=== PATIENT | female | born 1965 | race Caucasian/White ===

== ENCOUNTER 2018-01-14 15:19 | Inpatient (IN) ==
--- NOTE | 2018-01-14 15:35 | Emergency Department Note ---
Disposition Clinical Impression: Dehydration with hyponatremia, Asymptomatic hypertensive urgency Disposition: Admitted As Inpatient Condition: Good Time of Disposition: 18:00 General Adult HPI - General Chief complaint: ED Dizziness Stated complaint: dehydration Time Seen by Provider: 01/14/18 15:29 Source: patient Mode of arrival: EMS Limitations: no limitations Nursing Notes Reviewed: Yes Vital Signs Reviewed: Yes - History of Present Illness HPI Narrative: 52-year-old past medical history of hypertension, multiple strokes, diabetes presents today for lightheadedness and dehydration. 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 Rest and hydration did not help. Patient was unable to perspire despite feeling overheated. EMS was called due to worsening lightheadedness. Patient denies losing conciousness, trauma, confusion, headaches, nausea, vomiting, abdominal pain, numbness or tingling. She also denies CP, SOB, weakness. Patient states that she feels "very overheated". She is currently receiving 1L bolus, SBP 230s. She reports that she is compliant with her HTN medication and home measurements are <140/90. No further acute complaints. Pt Subjective Complaint: Dizziness Pain Scale: 0 - Related Data Previous Rx's Medication Instructions Recorded cloNIDine HCl [CloNIDine HCl] 0.1 mg PO DAILY #5 tablet 04/27/16 Allergies Allergy/AdvReac Type Severity Reaction Status Date / Time Penicillins [PCN] Allergy Severe Difficulty Verified 11/27/15 09:37 Breathing [place] Allergy Swelling Verified 04/27/16 20:59 of Lip/Tongue/Throat Tomato Allergy Swelling Verified 04/27/16 20:59 of Lip/Tongue/Throat All systems ED: reviewed and negative except as stated. Review of Systems: As Per HPI Constitutional: Reports: as per HPI Cardiovascular: Denies: chest pain Respiratory: Denies: cough, dyspnea Gastrointestinal: Reports: as per HPI. Denies: abdominal pain Genitourinary: Reports: as per HPI Musculoskeletal: Reports: as per HPI Integumentary: Reports: as per HPI Neurological: Reports: weakness. 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 - Social History Smoking Status: Never smoker Smokeless Tobacco Status: No Alcohol use: Reports: none Drug use: Reports: none Physical Exam - General Limitations: no limitations General appearance: alert, in no apparent distress, obese - Head Head exam: atraumatic, normocephalic, normal inspection - Eye Eye exam: Present: normal appearance, PERRL, EOMI - Expanded Eye Exam Pupils: Left: reactive - ENT ENT exam: normal exam, normal oropharynx, mucous membranes moist - Expanded ENT Exam External ear exam: Present: normal external inspection Mouth exam: Present: normal external inspection Teeth exam: Present: normal inspection Throat exam: Present: normal inspection - Neck Neck exam: Present: normal inspection, full ROM, trachea midline - Chest Chest inspection: Present: normal inspection, symmetric chest wall rise - Respiratory Respiratory exam: Present: normal lung sounds bilaterally - Cardiovascular Cardiovascular exam: Present: normal rhythm, tachycardia, normal heart sounds - Abdominal Exam Abdominal exam: Present: soft, Non-Tender. Absent: tenderness, distention, guarding, rebound, rigidity - Extremities Exam Extremities exam: Present: normal inspection, full ROM. Absent: tenderness, pedal edema - Expanded Upper Extremity Exam Shoulder exam: Present: normal inspection, full ROM Arm exam: Present: normal inspection, full ROM Elbow exam: Present: normal inspection, full ROM Forearm/Wrist exam: Present: normal inspection, full ROM Hand exam: Present: normal inspection, full ROM Vascular exam: Normal: capillary refill, radial pulse - Expanded Lower Extremity Exam Hip/Pelvis exam: Present: normal inspection, full ROM Upper leg exam: Present: normal inspection, full ROM Knee exam: Present: normal inspection, full ROM Lower leg exam: Present: normal inspection, full ROM Ankle exam: Present: normal inspection, full ROM Foot/toe exam: Present: normal inspection, full ROM Neurovascular/Tendon exam: Absent: motor deficit, sensory deficit, tendon deficit - Back Exam Back exam: Present: normal inspection, full ROM. Absent: tenderness - Neurological Exam Neurological exam: Present: alert, oriented X3 - Expanded Neurological Exam Patient oriented to: Present: person, place, time Coma Scale Eye Opening: Spontaneous Coma Scale Motor Response: Obeys Commands Coma Scale Verbal Response: Oriented Coma Scale Total: 15 - Psychiatric Psychiatric exam: Present: normal affect, normal mood - Skin Skin exam: Present: warm, dry, intact, normal color Course Course Narrative: Patient's history most consistent with heat stroke. EKG, CXR, CBC, BMP, troponin pending. Continue with 1L IVF, labetalol for her hypertension. - Reevaluation(s) Reevaluation #1: Patient received 2 doses 10 mg labetalol, but pressure continues to be elevated with systolic blood pressure greater than 200. We will administer 1.25 mg Vasotec. Patient continues to be alert and oriented 3. Reports improvement with IV fluids. Chest x-ray unremarkable. EKG without acute changes. We will continue to closely monitor blood pressure. Time: 16:30 Reevaluation #2: Patient's SBP >200 despite 2x 10mg Labetalol and 1.25mg Vasotec. She continues to be AOx3, asymptomatic. Will admit for hypertensive urgency. Time: 17:30 Vital Signs Temperature 98.1 F 01/14/18 15:21 Pulse Rate 98 01/14/18 15:21 Respiratory Rate 20 01/14/18 15:21 Blood Pressure 237/131 01/14/18 15:21 O2 Sat by Pulse Oximetry 98 01/14/18 15:21 Temperature 98.1 F 01/14/18 15:27 Pulse Rate 80 01/14/18 17:30 Respiratory Rate 20 01/14/18 17:46 Blood Pressure 215/99 01/14/18 17:46 O2 Sat by Pulse Oximetry 94 01/14/18 17:30 Oxygen Delivery Oxygen Delivery Room Air Medical Decision Making - [facility] Narrative Medical decision making narrative: Patient presents with symptoms of dehydration. EKG and CXR are unremarkable. CBC and BMP also unremarkable with marginal hyponatremia 133. SBP on presentation >200. After 2 doses 10mg labetalol and 1.25mg Vasotec, SBP remains >200. Patient is to be admitted for hypertensive urgency and better BP control. I spoke with the patient and she is agreeable to management plan. Admitting hospitalist is notified. - Differential Diagnosis hypertensive urgency, hypertensive emergency, unspecified hypertension - Medical Records Medical records reviewed: Yes I reviewed the patient's medical records. - Lab Data Lab results reviewed: Yes I reviewed the patient's lab results. Result diagrams: 01/14/18 15:46 01/14/18 15:46 Lab Results 01/14/18 01/14/18 01/14/18 Range/Units 15:46 15:46 15:46 WBC 9.1 (4.3-11.1) K/mcL RBC 4.45 (3.82-4.97) M/mcL Hgb 11.6 (11.5-15.4) g/dL Hct 36.5 (35.3-44.9) % MCV 82.0 L (83.0-100.0) fL MCH 26.1 L (28.0-33.3) pg MCHC 31.8 (31.6-35.5) g/dL RDW 14.6 H (11.5-14.5) % Plt Count 271 (140-400) K/mcL MPV 10.4 (9.4-12.4) fL Immature Gran % 0.6 (0-4) % Seg Neutrophils % 67.8 % Lymphocytes % 27.9 % Monocytes % 2.9 % Eosinophils % 0.6 % Basophils % 0.2 % Neutrophils # 6.2 (1.6-8.9) K/mcL Lymphocytes # 2.5 (0.6-4.6) K/mcL Monocytes # 0.3 (0.0-1.3) K/mcL Eosinophils # 0.1 (0.0-0.6) K/mcL Basophils # 0.0 (0.0-0.2) K/mcL Sodium 133 L (136-145) mEq/L Potassium 3.5 (3.5-5.1) mEq/L Chloride 98 (98-107) mEq/L Carbon Dioxide 24 (23-29) mEq/L BUN 15 (6-20) mg/dL Creatinine 0.72 (0.60-1.20) mg/dL Est GFR ( Amer) > 60 (> 60) Est GFR (Non-Af Amer) > 60 (> 60) BUN/Creatinine Ratio 21 (6-26) Glucose 188 H (70-105) mg/dL Calculated Osmolality 282 (280-300) Calcium 9.0 (8.6-10.3) mg/dL Troponin I < 0.03 (< 0.04) ng/mL - Radiology Data Radiology results reviewed: Yes I reviewed the patient's radiology results. - EKG Data EKG #1 EKG results narrative: EKG shows a rate of 94. MA interval 156. QRS 92. QTC 427. EKG shows normal: sinus rhythm Rate: tachycardia Rhythm: NSR [place]/QRS: normal
[2018-01-14] MEDS ORDERED: 0.9 % Sodium Chloride 1,000 ML IVC ONE (15:37)
[2018-01-14] MEDS ORDERED: *HR* Labetalol 100 MG/20 ML MDV IVP ONE ×2 (15:43→16:43)
--- NOTE | 2018-01-14 16:22 | Emergency Department Note ---
START Narrative - START START: I examined this patient and my medical decision-making was reviewed with the Resident Physician. I agree with the documented findings, disposition and treatment plan as described except to the extent set forth below. 52-year-old female presents emergency room for getting overheated as well as flushed. 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 States she has been in there since 9 AM. Just got overheated today not severely flushed and lightheaded. He took her blood pressure and it was 200 systolic. They sent her into the ER for evaluation. She denies any chest pain. She denies any vomiting. No headache. No numbness. She denies any vision changes. She states she does feels lightheaded and dizzy at times. She does take blood pressure medications. She did take those this morning. We will check some screening lab work. Chest x-ray. EKG. We will give her some labetalol for her blood pressure to see how she responds. Make sure that she has no end organ damage.
[2018-01-14 16:42] LABS: BUN/Creatinine Ratio 21 (6-26); Blood Urea Nitrogen 15 mg/dL (6-20); Carbon Dioxide 24 mEq/L (23-29); Chloride 98 mEq/L (98-107); Glucose 188 mg/dL (70-105); Osmolality,Calculated 282 (280-300); Potassium 3.5 mEq/L (3.5-5.1); Sodium 133 mEq/L (136-145); eGFR For African Americans > 60 (> 60); eGFR For Non-African Americans > 60 (> 60)
[2018-01-14 16:43] LABS: Basophils % 0.2 %; Eosinophils # 0.1 K/mcL (0.0-0.6); Eosinophils % 0.6 %; Hematocrit 36.5 % (35.3-44.9); Hemoglobin 11.6 g/dL (11.5-15.4); Immature Granulocytes % 0.6 % (0-4); Lymphocytes # 2.5 K/mcL (0.6-4.6); Lymphocytes % 27.9 %; Mean Corpuscular HGB Conc 31.8 g/dL (31.6-35.5); Mean Corpuscular Hemoglobin 26.1 pg (28.0-33.3); Mean Platelet Volume 10.4 fL (9.4-12.4); Monocytes # 0.3 K/mcL (0.0-1.3); Monocytes % 2.9 %; Neutrophils # 6.2 K/mcL (1.6-8.9); Platelet Count 271 K/mcL (140-400); Red Blood Count 4.45 M/mcL (3.82-4.97); Red Cell Distribution Width 14.6 % (11.5-14.5); Segmented Neutrophils % 67.8 %
--- NOTE | 2018-01-14 20:28 | Internal Med History&Physical ---
Date of Encounter: 01/14/18 Time of Encounter: 20:25 Internal Medicine - H&P: HPI Admitted From: Emergency Dept Plans for Post Hospital Care: Home History of present illness: Ms. Alamo is a 52 year old female with PmHx of HTN. 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 She states it got real hot, she was lightheaded, and nauseous. SHe also reports she has not had a lot of fluids to drink. She reports that she is on Lisinopril and Clonidine but does not recall her does. She did report taking her morning medication. CODE STATUS: FULL. In ED WBC 9.1, hgb 11.6, hct 36.5, plt 14.6. NA 133, K 3.3, BUN 15, Cr 0.72. Glucose 188. Troponin <0.03. Chest x ray IMPRESSION: Cardiac silhouette enlargement. No acute airspace disease identified. Past Med Surg Social Fam HX - Past Medical History Medical history: diabetes, GERD, hypertension, renal disease Additional medical history: Anxiety, depressive disorder, cerebral artery occlusion Psychiatric history: anxiety, depression - Past Surgical History Surgical History: , cholecystectomy, other Additional surgical history: gastric bypass - Social History Smoking Status: Never smoker Smokeless Tobacco Status: No Alcohol use: none Drug use: none - Family History Mother Living Status: Age at : 57 Cause of : heart failure Hx Family Cardiac Disorders: Yes Hx Family Respiratory Disorders: No Hx Family Cancer: No Hx Family GI Disorders: No Hx Family Endocrine Disorder: Yes Hx Family Neurologic Disorders: No Hx Family Medical Disorders: Yes Internal Medicine - H&P: Meds cloNIDine HCl [CloNIDine HCl] 0.1 mg PO DAILY #5 tablet 04/27/16 [Rx] 3 Allergy/AdvReac Type Severity Reaction Status Date / Time Penicillins [PCN] Allergy Severe Difficulty Verified 11/27/15 09:37 Breathing [place] Allergy Swelling Verified 04/27/16 20:59 of Lip/Tongue/Throat [place] Allergy Swelling Verified 04/27/16 20:59 of Lip/Tongue/Throat All Systems PM: A 10-system review of systems was performed and is negative for pertinent findings except as documented above in the HPI. - Constitutional Vitals: Temp Pulse Resp BP Pulse Ox 97.9 F 81 17 209/102 95 01/14/18 18:48 06/09/18 18:48 01/14/18 18:48 01/14/18 20:08 01/14/18 18:48 General appearance: Present: A&O X 3, morbidly obese, no acute distress - Head Head exam: Present: atraumatic, normocephalic - Eye Eye exam: Present: PERRL, conjuntiva pink, sclera anicteric Pupils: Present: PERRL - Neck Neck exam general surgery: Present: supple, trachea midline. Absent: lymphadenopathy - Respiratory Respiratory exam: Present: CTAB. Absent: accessory muscle use, rales, rhonchi, wheezes - Cardiovascular Cardiovascular exam: Present: RRR, +S1, +S2. Absent: diastolic murmur, gallop, rubs, systolic murmur - GI/Abdominal GI/Abdominal exam: Present: normal bowel sounds, soft, no peritoneal signs. Absent: distended, tenderness - Extremities Exam Extremities exam: Present: warm, radial pulses palpable and symmetrical. Absent : calf tenderness, cyanotic, pedal edema - Neurological Exam Neurological exam: Present: CN II-XII intact, oriented X3, no focal deficits. Absent: pronater drift, facial droop, speech deficit - Skin Skin exam: Present: dry, intact Internal Med - H&P Results - Labs CBC & Chem 7: 01/14/18 15:46 01/14/18 15:46 - Assessment and plan (1) Hypertensive urgency Current Visit: Yes Status: Acute Assessment and plan: WIll resume home medication. Will work to gradually lower BP. Will monitor on telemetry. (2) Heat exhaustion Current Visit: Yes Status: Acute Assessment and plan: Given IVF in ED. Will encourage PO intake. Qualifiers: Qualified Code(s): T67.5XXA - Heat exhaustion, unspecified, initial encounter (3) Dehydration with hyponatremia Current Visit: Yes Status: Acute Assessment and plan: Will recheck BMP following hydration. Encourage PO intake. - Time Spent With Patient Total time spent is greater than 50% in coordination of care (as documented) at patient's floor/unit and/or counseling patient: 25 - 35 minutes
[2018-01-14] MEDS ORDERED: Naloxone 0.4 MG/ML INJ IVP PRN (20:31)
[2018-01-14] MEDS ORDERED: Acetaminophen 325 MG TABLET PO PRN (20:31)
[2018-01-14] MEDS ORDERED: cloNIDine HCl 0.1 MG TABLET ONE (20:46)
[2018-01-14] MEDS: cloNIDine HCl 0.1 MG TABLET PO SCH (20:50)
[2018-01-14] MEDS: niCARdipine 40 MG/200 ML MLS IVC SCH (23:04)
[2018-01-15] MEDS: *HR* Enoxaparin 40 MG/0.4 ML SYRINGE SQ SCH (05:38)
[2018-01-15 06:22] LABS: BUN/Creatinine Ratio 22 (6-26); Blood Urea Nitrogen 12 mg/dL (6-20); Calcium 9.4 mg/dL (8.6-10.3); Carbon Dioxide 25 mEq/L (23-29); Chloride 102 mEq/L (98-107); Glucose 197 mg/dL (70-105); Osmolality,Calculated 289 (280-300); Sodium 137 mEq/L (136-145); eGFR For African Americans > 60 (> 60); eGFR For Non-African Americans > 60 (> 60)
[2018-01-15] MEDS: cloNIDine HCl 0.1 MG TABLET PO SCH ×3 (07:27→19:53)
[2018-01-15] MEDS: niCARdipine 40 MG/200 ML MLS IVC SCH ×2 (07:28→13:55)
[2018-01-15] MEDS ORDERED: Lisinopril 20 MG TABLET PO SCH ×2 (09:00→21:00)
[2018-01-15] MEDS ORDERED: diazePAM 5 MG TABLET PO PRN (13:07)
--- NOTE | 2018-01-15 13:40 | Internal Med Progress Note ---
Date of Encounter: 01/15/18 Time of Encounter: 13:37 - Assessment and plan (1) Asymptomatic hypertensive urgency Current Visit: Yes Status: Acute Assessment and plan: Currently blood pressure improved restart home medications Labetolol prn Dispo: If patient remains stable tomorrow and right arm doppler negative, anticipate discharge early tomorrow. (2) Dehydration with hyponatremia Current Visit: Yes Status: Acute Assessment and plan: Resolved with IV fluids. No further need for IV fluids (3) Heat exhaustion Current Visit: Yes Status: Acute Qualifiers: Encounter type: initial encounter Qualified Code(s): T67.5XXA - Heat exhaustion, unspecified, initial encounter (4) Hypertensive urgency Current Visit: Yes Status: Acute Assessment and plan: As above, continue prn medications Restart home medications. (5) Swelling of right upper extremity Current Visit: Yes Status: Acute Assessment and plan: Will get doppler rule out DVT - Time Spent With Patient Total time spent is greater than 50% in coordination of care (as documented) at patient's floor/unit and/or counseling patient: - Subjective Interval history: No acute events. Patient states she feels better and doesn't feel overheated anymore. She admits to arm arm swelling after BP cuff measurments have been used. - Constitutional Vitals: Temp Pulse Resp BP Pulse Ox 98.2 F 88 18 160/71 95 01/15/18 11:01 01/15/18 13:00 01/15/18 11:08 01/15/18 13:00 01/15/18 11:08 General appearance: Present: A&O X 3, morbidly obese, no acute distress - Head Head exam: Present: atraumatic, normocephalic - Eye Eye exam: Present: PERRL, conjuntiva pink, sclera anicteric Pupils: Present: PERRL - Neck Neck exam general surgery: Present: supple, trachea midline. Absent: lymphadenopathy - Respiratory Respiratory exam: Present: CTAB. Absent: accessory muscle use, rales, rhonchi, wheezes - Cardiovascular Cardiovascular exam: Present: RRR, +S1, +S2. Absent: diastolic murmur, gallop, rubs, systolic murmur - GI/Abdominal GI/Abdominal exam: Present: normal bowel sounds, soft, no peritoneal signs. Absent: distended, tenderness - Extremities Exam Extremities exam: Present: warm, radial pulses palpable and symmetrical. Absent : calf tenderness, cyanotic, pedal edema Additional comments: Right arm with swelling but palpaple pulse - Neurological Exam Neurological exam: Present: CN II-XII intact, oriented X3, no focal deficits. Absent: pronater drift, facial droop, speech deficit - Skin Skin exam: Present: dry, intact Additional comments: Right arm erythematous and slightly swelling. Internal Medicine: Result - Labs CBC & Chem 7: 01/14/18 15:46 01/15/18 05:46 Labs: [facility] 01/15/18 05:46 Sodium 137 Potassium 4.0 Chloride 102 Carbon Dioxide 25 BUN 12 Creatinine 0.54 L Glucose 197 H Calcium 9.4 Consult Discharge Plan - Plan Referrals: Sammy Vela MD [Primary Care Provider] -
[2018-01-16] MEDS: *HR* Enoxaparin 40 MG/0.4 ML SYRINGE SQ SCH (03:44)
[2018-01-16 05:33] LABS: Basophils % 0.3 %; Eosinophils # 0.2 K/mcL (0.0-0.6); Eosinophils % 2.6 %; Hematocrit 36.7 % (35.3-44.9); Hemoglobin 11.7 g/dL (11.5-15.4); Immature Granulocytes % 0.4 % (0-4); Lymphocytes # 2.2 K/mcL (0.6-4.6); Lymphocytes % 31.2 %; Mean Corpuscular HGB Conc 31.9 g/dL (31.6-35.5); Mean Corpuscular Hemoglobin 26.2 pg (28.0-33.3); Mean Corpuscular Volume 82.3 fL (83.0-100.0); Mean Platelet Volume 10.3 fL (9.4-12.4); Monocytes # 0.3 K/mcL (0.0-1.3); Monocytes % 4.1 %; Neutrophils # 4.3 K/mcL (1.6-8.9); Platelet Count 254 K/mcL (140-400); Red Blood Count 4.46 M/mcL (3.82-4.97); Red Cell Distribution Width 15.1 % (11.5-14.5); Segmented Neutrophils % 61.4 %
[2018-01-16 05:52] LABS: BUN/Creatinine Ratio 29 (6-26); Blood Urea Nitrogen 15 mg/dL (6-20); Calcium 8.9 mg/dL (8.6-10.3); Carbon Dioxide 24 mEq/L (23-29); Chloride 104 mEq/L (98-107); Glucose 188 mg/dL (70-105); Osmolality,Calculated 294 (280-300); Potassium 3.6 mEq/L (3.5-5.1); Sodium 139 mEq/L (136-145); eGFR For African Americans > 60 (> 60); eGFR For Non-African Americans > 60 (> 60)
[2018-01-16] MEDS: ARIPiprazole 10 MG TABLET PO SCH (07:51)
[2018-01-16] MEDS: Venlafaxine XR (24 HR) 75 MG CAP.ER.24H PO SCH (07:51)
[2018-01-16] MEDS: cloNIDine HCl 0.1 MG TABLET PO SCH ×3 (07:51→20:59)
[2018-01-16] MEDS: Cholecalciferol (D-3) 1,000 UNIT TABLET PO SCH (07:52)
--- NOTE | 2018-01-16 08:11 | Electrocardiograph Report ---
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
[2018-01-16] MEDS ORDERED: (Linagliptin [Tradjenta] 5 MG) PO SCH (09:00)
[2018-01-16] MEDS ORDERED: Lisinopril 20 MG TABLET PO SCH (09:00)
[2018-01-16] MEDS: Budesonide Neb 0.25 MG/2 ML IH SCH ×2 (11:05→22:39)
--- NOTE | 2018-01-16 12:18 | Internal Med Progress Note ---
Date of Encounter: 01/16/18 Time of Encounter: 12:15 - Assessment and plan (1) Asymptomatic hypertensive urgency Current Visit: Yes Status: Acute Assessment and plan: Currently blood pressure improved but right now jumped up to 187/114 Home medications restarted 01/15 nicardipine drip - Increase home clonidine to 0.2 mg TID - Will increase lisinopril from 40 mg daily to now 40 mg BID (this was home dose ) - Home when BP stable (2) Dehydration with hyponatremia Current Visit: Yes Status: Acute Assessment and plan: Resolved with IV fluids. No further need for IV fluids (3) Heat exhaustion Current Visit: Yes Status: Acute Qualifiers: Encounter type: initial encounter Qualified Code(s): T67.5XXA - Heat exhaustion, unspecified, initial encounter (4) Hypertensive urgency Current Visit: Yes Status: Acute Assessment and plan: As above, continue prn medications Restart home medications. (5) Swelling of right upper extremity Current Visit: Yes Status: Acute Assessment and plan: Will get doppler rule out DVT - Time Spent With Patient Total time spent is greater than 50% in coordination of care (as documented) at patient's floor/unit and/or counseling patient: - Subjective Interval history: No acute events. Patient states she feels better and doesn't feel overheated anymore. Right arm swelling resolved Denies cp, sob, palpitations - Constitutional Vitals: Temp Pulse Resp BP Pulse Ox 98.8 F 96 20 187/114 97 01/16/18 11:22 01/16/18 11:22 01/16/18 11:22 01/16/18 11:22 01/16/18 11:22 General appearance: Present: A&O X 3, morbidly obese, no acute distress - Head Head exam: Present: atraumatic, normocephalic - Eye Eye exam: Present: PERRL, conjuntiva pink, sclera anicteric Pupils: Present: PERRL - Neck Neck exam general surgery: Present: supple, trachea midline. Absent: lymphadenopathy - Respiratory Respiratory exam: Present: CTAB. Absent: accessory muscle use, rales, rhonchi, wheezes - Cardiovascular Cardiovascular exam: Present: RRR, +S1, +S2. Absent: diastolic murmur, gallop, rubs, systolic murmur - GI/Abdominal GI/Abdominal exam: Present: normal bowel sounds, soft, no peritoneal signs. Absent: distended, tenderness - Extremities Exam Extremities exam: Present: warm, radial pulses palpable and symmetrical. Absent : calf tenderness, cyanotic, pedal edema - Neurological Exam Neurological exam: Present: CN II-XII intact, oriented X3, no focal deficits. Absent: pronater drift, facial droop, speech deficit - Skin Skin exam: Present: dry, intact Internal Medicine: Result - Labs CBC & Chem 7: 01/16/18 04:42 01/16/18 04:42 Labs: Short CBC 01/16/18 Range/Units 04:42 WBC 7.0 (4.3-11.1) K/mcL Hgb 11.7 (11.5-15.4) g/dL Hct 36.7 (35.3-44.9) % Plt Count 254 (140-400) K/mcL Neutrophils # 4.3 (1.6-8.9) K/mcL BMP 01/16/18 04:42 Sodium 139 Potassium 3.6 Chloride 104 Carbon Dioxide 24 BUN 15 Creatinine 0.51 L Glucose 188 H Calcium 8.9 Consult Discharge Plan - Plan Referrals: Sammy Vela MD [Primary Care Provider] - (SENT WEB REQUEST ON 01-16-18 @ [id number])
[2018-01-16] MEDS ORDERED: *HR* Dextrose 50 % in Water (Syg) 50 ML SYRINGE IVP PRN (16:12)
[2018-01-16] MEDS ORDERED: D5% in Water 1,000 ML IVC PRN (16:12)
[2018-01-16] MEDS ORDERED: Dextrose Gel 15 GM/37.5 ML TUBE PO PRN ×2 (16:12)
[2018-01-16] MEDS: Insulin LISPRO 300 UNITS/3 ML VIAL SQ SCH (16:52)
[2018-01-16] MEDS: Lisinopril 20 MG TABLET PO SCH (20:59)
[2018-01-17] MEDS: *HR* Enoxaparin 40 MG/0.4 ML SYRINGE SQ SCH (03:06)
[2018-01-17 07:03] VITALS: BP 149/93
[2018-01-17] MEDS: niCARdipine 40 MG/200 ML MLS IVC SCH ×2 (07:05→07:06)
[2018-01-17 07:13] LABS: Basophils % 0.3 %; Eosinophils # 0.2 K/mcL (0.0-0.6); Eosinophils % 3.1 %; Hematocrit 35.4 % (35.3-44.9); Hemoglobin 11.2 g/dL (11.5-15.4); Immature Granulocytes % 0.4 % (0-4); Lymphocytes # 2.7 K/mcL (0.6-4.6); Lymphocytes % 39.4 %; Mean Corpuscular HGB Conc 31.6 g/dL (31.6-35.5); Mean Corpuscular Hemoglobin 26.2 pg (28.0-33.3); Mean Corpuscular Volume 82.9 fL (83.0-100.0); Mean Platelet Volume 9.9 fL (9.4-12.4); Monocytes # 0.3 K/mcL (0.0-1.3); Monocytes % 4.1 %; Neutrophils # 3.6 K/mcL (1.6-8.9); Platelet Count 254 K/mcL (140-400); Red Blood Count 4.27 M/mcL (3.82-4.97); Red Cell Distribution Width 15.4 % (11.5-14.5); Segmented Neutrophils % 52.7 %
[2018-01-17 07:26] LABS: BUN/Creatinine Ratio 27 (6-26); Blood Urea Nitrogen 15 mg/dL (6-20); Carbon Dioxide 22 mEq/L (23-29); Chloride 106 mEq/L (98-107); Glucose 174 mg/dL (70-105); Osmolality,Calculated 293 (280-300); Potassium 3.7 mEq/L (3.5-5.1); Sodium 139 mEq/L (136-145); eGFR For African Americans > 60 (> 60); eGFR For Non-African Americans > 60 (> 60)
[2018-01-17] MEDS: Lisinopril 20 MG TABLET PO SCH (07:32)
[2018-01-17] MEDS: ARIPiprazole 10 MG TABLET PO SCH (07:32)
[2018-01-17] MEDS: cloNIDine HCl 0.1 MG TABLET PO SCH (07:32)
[2018-01-17] MEDS: Insulin LISPRO 300 UNITS/3 ML VIAL SQ SCH (07:32)
[2018-01-17] MEDS: Venlafaxine XR (24 HR) 75 MG CAP.ER.24H PO SCH (07:32)
[2018-01-17] MEDS: Cholecalciferol (D-3) 1,000 UNIT TABLET PO SCH (07:32)
[2018-01-17] MEDS: Budesonide Neb 0.25 MG/2 ML IH SCH (07:56)
--- NOTE | 2018-01-17 10:33 | Discharge Summary ---
- NOTES TO OUTPATIENT PROVIDER Notes to Outpatient Provider: Patient admitted here with hypertensive urgency. Likely rebound hypertension with clonidine use. Have increased clonidine dosage to 0.2 mg 3 times a day. Advised patient to take it at same time daily and not miss any doses to avoid future episodes of hypertensive urgency. Recommend transdermal dosing if possible. Follow-up later this week with PCP. Date of Encounter: 01/17/18 Time of Encounter: 10:31 - Discharge Diagnosis (1) Hypertensive urgency Priority: Primary Status: Acute (2) Asymptomatic hypertensive urgency Priority: Secondary Status: Acute (3) Dehydration with hyponatremia Priority: Secondary Status: Acute (4) Heat exhaustion Priority: Secondary Status: Acute Qualifiers: Encounter type: initial encounter Qualified Code(s): T67.5XXA - Heat exhaustion, unspecified, initial encounter (5) Swelling of right upper extremity Priority: Secondary Status: Acute Hospital course: Ms. Alamo is a 52 year old female is sent with history of diabetes, hypertension who was hospitalized here after presenting to the ER with complaints of lightheadedness and nausea while she was working outside in the sun. She was suspected of having heat exhaustion but was also having severe hypertension with blood pressure going as high as 217/106. She was placed on nicardipine drip and transferred to stepdown unit. Her blood pressure was closely monitored and after it improved, she was transitioned to oral medications. She could have been having an episode of rebound hypertension due to use of clonidine. Her clonidine dosage has been increased to 0.2 mg 3 times a day. So far she is tolerating this well. Her blood pressure has been much better controlled since then. She is now stable to be discharged home. I do recommend changing her antihypertensive regimen to avoid clonidine or changing her clonidine to a transdermal dosing to achieve better and more stable levels in her and to avoid hypotension. She did have some swelling in her life right upper extremity but his venous Doppler was negative. The swelling has now resolved. Discharge discussed with: patient, nurse - Time Spent with Patient Total time spent providing and/or coordinating discharge services: Greater than 30 minutes (32 min) - Discharge Medications Prescriptions: cloNIDine HCl [CloNIDine HCl] 0.2 mg PO TID #90 tablet Home Medications: ARIPiprazole [Abilify] 10 mg PO HS 01/14/18 [History] Albuterol Sulfate [Ventolin Hfa] 2 puff IH Q4H PRN 01/14/18 [History] Benztropine [Cogentin] 0.5 mg PO BID 01/14/18 [History] Budesonide [Pulmicort] 2 puff IH DAILY 01/14/18 [History] Cholecalciferol (D-3) [Vitamin D] 2,000 unit PO DAILY 01/14/18 [History] Doxepin [Sinequan] 100 mg PO HS 01/14/18 [History] Furosemide [Lasix] 20 mg PO DAILY PRN 01/14/18 [History] Linagliptin [Tradjenta] 5 mg PO DAILY 01/14/18 [History] Lisinopril [Zestril] 40 mg PO BID 01/14/18 [History] Simvastatin [Zocor] 10 mg PO HS 01/14/18 [History] Venlafaxine HCl [Venlafaxine HCl ER] 75 mg PO DAILY 01/14/18 [History] diazePAM [Valium] 5 mg PO BID PRN 01/14/18 [History] Exenatide Microspheres [Bydureon Pen] 2 mg PO SHORE 01/15/18 [History] Latanoprost [Xalatan] 1 drop BOTH EYES HS 01/15/18 [History] Melatonin 3 mg PO HS PRN 01/15/18 [History] Metformin HCl 1,000 mg PO BID 01/15/18 [History] cloNIDine HCl [CloNIDine HCl] 0.2 mg PO TID #90 tablet 01/17/18 [Rx] Allergies/Adverse Reactions: 3 Allergy/AdvReac Type Severity Reaction Status Date / Time Penicillins [PCN] Allergy Severe Difficulty Verified 01/15/18 13:20 Breathing Murphy Allergy Swelling Verified 01/15/18 13:20 of Lip/Tongue/Throat Tomato Allergy Swelling Verified 01/15/18 13:20 of Lip/Tongue/Throat Date of admission: 01/14/18 21:19 Primary care physician: Sammy Vela MD Discharging clinician: Roma Parikh Anticipated date of discharge: 01/17/18 - Constitutional Vitals: Temp Pulse Resp BP Pulse Ox 98.3 F 85 18 149/93 97 01/17/18 07:01 01/17/18 07:01 01/17/18 07:57 01/17/18 07:01 01/17/18 07:57 General appearance: Present: cooperative, A&O X 3, morbidly obese, no acute distress, answers questions appropriately - Respiratory Respiratory exam: Present: CTAB. Absent: accessory muscle use, rales, rhonchi, wheezes - Cardiovascular Cardiovascular exam: Present: RRR, +S1, +S2. Absent: diastolic murmur, gallop, rubs, systolic murmur - GI/Abdominal GI/Abdominal exam: Present: normal bowel sounds, soft, no peritoneal signs. Absent: distended, tenderness - Extremities Exam Extremities exam: Present: warm, radial pulses palpable and symmetrical. Absent : calf tenderness, cyanotic, pedal edema - Neurological Exam Neurological exam: Present: alert, oriented X3, no focal deficits, strengths equal and symetr throughout. Absent: facial droop, speech deficit - Patient Status Disposition: Home, Self-Care Condition: Good Functional capacity at discharge: independent ambulation Overall status at discharge: patient is progressing back to baseline - Discharge Instructions Instructions: Clonidine (By mouth), Chronic Hypertension (DC) Follow Up With: Sammy Vela MD [Primary Care Provider] - 01/23/18 1:15 pm () - Diet and Activity Activity: increase activity as tolerated Diet: low fat, low cholesterol, low salt diet
== END 2018-01-17 12:06 | disposition home or self-care (01) | DRG 305 ==
LOC: 2NENU 15:19 → EMEROO 15:19 → 2NENU 18:21 → SUATTDRO 21:19 → 2NNU 22:53
PROVIDERS: ADMIT Internal Medicine; ATTEND Internal Medicine

== ENCOUNTER 2018-10-18 04:54 | Observation (INO) ==
[2018-10-18] MEDS ORDERED: Aspirin 81 MG TAB.CHEW PO ONE (05:07)
--- NOTE | 2018-10-18 05:17 | Emergency Department Note ---
Disposition Clinical Impression: Atrial fibrillation with RVR Disposition: Admitted As Inpatient Condition: Good Referrals: Sammy Vela MD [Primary Care Provider] - Forms: ED Satisfaction Letter Time of Disposition: 06:29 SOB HPI - General Chief Complaint: ED Shortness of Breath/Dyspnea Stated Complaint: Ying Time Seen by Provider: 10/18/18 05:04 Source: patient, EMS Limitations: no limitations Nursing Notes Reviewed: Yes Vital Signs Reviewed: Yes - History of Present Illness 53-year-old female arrives via squad with complaint of shortness of breath and palpitations. She describes as starting a few hours prior to arrival. She describes it starting out she was at rest. She denied any chest pain. She mentioned she has not had this sensation in the past. She mentioned she had some light headedness, denies any passing out, or vertigo. She denies any cough, fever, numbness tingling weakness, bowel or bladder symptoms, nausea vomiting. - Related Data Home Medications Medication Instructions Recorded Confirmed ARIPiprazole [Abilify] 10 mg PO HS 01/14/18 01/15/18 Albuterol Sulfate [Ventolin Hfa] 2 puff IH Q4H PRN 01/14/18 01/15/18 Budesonide [Pulmicort] 2 puff IH DAILY 01/14/18 01/15/18 Cholecalciferol (D-3) [Vitamin D] 2,000 unit PO DAILY 01/14/18 01/14/18 Doxepin [Sinequan] 100 mg PO HS 01/14/18 01/14/18 Furosemide [Lasix] 20 mg PO DAILY PRN 01/14/18 01/14/18 Linagliptin [Tradjenta] 5 mg PO DAILY 01/14/18 01/14/18 Lisinopril [Zestril] 40 mg PO BID 01/14/18 01/14/18 Simvastatin [Zocor] 10 mg PO HS 01/14/18 01/14/18 diazePAM [Valium] 5 mg PO BID PRN 01/14/18 01/14/18 Exenatide Microspheres [Bydureon 2 mg PO SHORE 01/15/18 01/15/18 Pen] Latanoprost [Xalatan] 1 drop BOTH EYES HS 01/15/18 01/15/18 Melatonin 3 mg PO HS PRN 01/15/18 01/15/18 Metformin HCl 1,000 mg PO BID 01/15/18 01/15/18 FLUoxetine HCl [Fluoxetine HCl] 40 mg PO DAILY 10/18/18 10/18/18 Loratadine [Claritin] 10 mg PO DAILY 10/18/18 10/18/18 Previous Rx's Medication Instructions Recorded cloNIDine HCl [CloNIDine HCl] 0.2 mg PO TID #90 tablet 01/17/18 Allergies Allergy/AdvReac Type Severity Reaction Status Date / Time Penicillins [PCN] Allergy Severe Difficulty Verified 01/15/18 13:20 Breathing Roann Allergy Swelling Verified 01/15/18 13:20 of Lip/Tongue/Throat Tomato Allergy Swelling Verified 01/15/18 13:20 of Lip/Tongue/Throat All systems ED: reviewed and negative except as stated. Review of Systems: As Per HPI Constitutional: Denies: fever, chills, weakness Eyes: Denies: vision change ENT ED: Denies: throat pain Cardiovascular: Denies: chest pain, palpitations Respiratory: Reports: as per HPI Gastrointestinal: Denies: abdominal pain, nausea, vomiting Musculoskeletal: Denies: joint swelling Integumentary: Denies: rash Neurological: Denies: headache Past Medical History - Past Medical History Medical history: Reports: diabetes, GERD, hypertension, renal disease Surgical history: Reports: , cholecystectomy, other Psychiatric history: Reports: anxiety, depression CROSS COUNTRY/[employer] history: Reports: no CROSS COUNTRY/[employer] history - Social History Smoking Status: Never smoker Smokeless Tobacco Status: No Alcohol use: Reports: none Drug use: Reports: none Physical Exam - General Limitations: no limitations General appearance: alert, in no apparent distress - Head Head exam: normocephalic - Eye Eye exam: Present: EOMI - ENT ENT exam: mucous membranes moist - Neck Neck exam: Present: full ROM - Chest Chest inspection: Present: symmetric chest wall rise - Respiratory Respiratory exam: Present: normal lung sounds bilaterally. Absent: respiratory distress, wheezes - Cardiovascular Cardiovascular exam: Present: tachycardia, irregular rhythm - Abdominal Exam Abdominal exam: Present: soft, Non-Tender - Extremities Exam Extremities exam: Present: normal inspection, full ROM, normal capillary refill - Back Exam Back exam: Present: full ROM - Neurological Exam Neurological exam: Present: alert - Psychiatric Psychiatric exam: Present: normal affect, normal mood - Skin Skin exam: Present: warm, dry, intact, normal color. Absent: rash, cyanosis, diaphoresis Course Course Narrative: Patient arrives via squad with complaint of palpitations and shortness of breath. Patient seen upon arrival to exam room. Squad reports that her heart rate has been ranging touching one's 6200. Blood pressure maximum measurement 240/187. 96% on 5 L. Blood glucose 371. No reported injury or trauma. Patient describes onset of palpitations shortness of breath approximately 2 AM while at rest. She denies any worsening on exertion, chest pain nausea, vomiting, recent illness. EKG shows rate of 167, noted A. fib. Work up initiated. - Reevaluation(s) Reevaluation #1: Pt has received Cardizem bolus and currently being titrated. She currently is asymptomatic. HR improving now in 140s. Remains hypertensive. No elevation in troponin. TSH slighlty elevated 5.8. CXR unremarkable. Will plan for admission. Time: 06:17 Reevaluation #2: Patient discussed with and accepted by hospitalist Dr. Toscano Time: 06:41 Vital Signs Temperature 97.8 F 10/18/18 05:01 Pulse Rate 174 10/18/18 05:01 Respiratory Rate 16 10/18/18 05:01 Blood Pressure 157/143 10/18/18 05:01 O2 Sat by Pulse Oximetry 97 10/18/18 05:01 Temperature 97.8 F 10/18/18 05:01 Pulse Rate 149 10/18/18 06:25 Respiratory Rate 18 10/18/18 06:25 Blood Pressure 214/156 10/18/18 06:25 O2 Sat by Pulse Oximetry 96 10/18/18 06:25 Oxygen Delivery Oxygen Delivery Room Air Shortness of Breath/Dyspnea - MDM Narrative Medical decision making narrative: 53-year-old female presents with shortness of breath and palpitations. She has known history of hypertension and hyperlipidemia otherwise denies any cardiac or thyroid conditions. Workup today is consistent with new onset atrial fibrillation with RVR. Chest x-ray shows some perihilar interstitial markings but otherwise unremarkable. No concerning signs for pneumonia. EKG did show A. fib, with some ST depressions that appear to be related to her tachycardia. She did receive Cardizem bolus and drip, her heart rate is improving. At the t lisa of this documentation, she denies any chest pain or palpitations. Patient was discussed with Dr. Pierce who also had face time with patient, and agreed with workup and disposition. Patient was discussed with and accepted by the hospitalist. Chest X-Ray 10/18/18 05:06 IMPRESSION: Interstitial edema. D/ / Giancarlo Zhu MD / Giancarlo Zhu MD Interpreting Provider: Giancarlo Zhu MD Laboratory Tests 10/18/18 10/18/18 10/18/18 05:10 05:10 05:10 WBC 7.3 RBC 5.08 H Hgb 13.1 Hct 40.9 MCV 80.5 L MCH 25.8 L MCHC 32.0 RDW 14.6 H Plt Count 301 MPV 10.6 Immature Gran % 0.3 Seg Neutrophils % 61.2 Lymphocytes % 32.6 Monocytes % 3.4 Eosinophils % 1.9 Basophils % 0.6 Neutrophils # 4.4 Lymphocytes # 2.4 Monocytes # 0.3 Eosinophils # 0.1 Basophils # 0.0 PT 12.8 H INR 1.1 APTT 32.5 Sodium 141 Potassium 3.1 L Chloride 103 Carbon Dioxide 25 BUN 10 Creatinine 0.72 Est GFR ( Amer) > 60 Est GFR (Non-Af Amer) > 60 BUN/Creatinine Ratio 14 Glucose 329 H Calculated Osmolality 304 H Calcium 9.5 Troponin I < 0.03 B-Natriuretic Peptide TSH 5.843 H Urine Color Urine Clarity Urine pH Ur Specific [place] Urine Protein Urine Glucose (UA) Urine Ketones Urine Blood Urine Nitrite Urine Bilirubin Urine Urobilinogen Ur Leukocyte Esterase Urine Microscopic RBC Urine Microscopic WBC Ur Squamous Epith Cells Urine Bacteria Hyaline Casts Ur Culture Indicated? 10/18/18 10/18/18 05:10 05:44 WBC RBC Hgb Hct MCV MCH MCHC RDW Plt Count MPV Immature Gran % Seg Neutrophils % Lymphocytes % Monocytes % Eosinophils % Basophils % Neutrophils # Lymphocytes # Monocytes # Eosinophils # Basophils # PT INR APTT Sodium Potassium Chloride Carbon Dioxide BUN Creatinine Est GFR ( Amer) Est GFR (Non-Af Amer) BUN/Creatinine Ratio Glucose Calculated Osmolality Calcium Troponin I B-Natriuretic Peptide 100 H TSH Urine Color Yellow Urine Clarity Clear Urine pH 7.0 Ur Specific [place] 1.005 L Urine Protein 30 H Urine Glucose (UA) 250 H Urine Ketones Negative Urine Blood Negative Urine Nitrite Negative Urine Bilirubin Negative Urine Urobilinogen Normal Ur Leukocyte Esterase Negative Urine Microscopic RBC 0-3 Urine Microscopic WBC 0-3 Ur Squamous Epith Cells None Seen Urine Bacteria None Seen Hyaline Casts None Seen Ur Culture Indicated? NO - Lab Data Lab results reviewed: Yes I reviewed the patient's lab results. Result diagrams: 10/18/18 05:10 10/18/18 05:10 Lab Results 10/18/18 10/18/18 10/18/18 Range/Units 05:10 05:10 05:10 WBC 7.3 (4.3-11.1) K/mcL RBC 5.08 H (3.82-4.97) M/mcL Hgb 13.1 (11.5-15.4) g/dL Hct 40.9 (35.3-44.9) % MCV 80.5 L (83.0-100.0) fL MCH 25.8 L (28.0-33.3) pg MCHC 32.0 (31.6-35.5) g/dL RDW 14.6 H (11.5-14.5) % Plt Count 301 (140-400) K/mcL MPV 10.6 (9.4-12.4) fL Immature Gran % 0.3 (0-4) % Seg Neutrophils % 61.2 % Lymphocytes % 32.6 % Monocytes % 3.4 % Eosinophils % 1.9 % Basophils % 0.6 % Neutrophils # 4.4 (1.6-8.9) K/mcL Lymphocytes # 2.4 (0.6-4.6) K/mcL Monocytes # 0.3 (0.0-1.3) K/mcL Eosinophils # 0.1 (0.0-0.6) K/mcL Basophils # 0.0 (0.0-0.2) K/mcL PT 12.8 H (9.4-12.1) Seconds INR 1.1 APTT 32.5 (26.0-36.0) Seconds Sodium 141 (136-145) mEq/L Potassium 3.1 L (3.5-5.1) mEq/L Chloride 103 (98-107) mEq/L Carbon Dioxide 25 (23-29) mEq/L BUN 10 (6-20) mg/dL Creatinine 0.72 (0.60-1.20) mg/dL Est GFR ( Amer) > 60 (> 60) Est GFR (Non-Af Amer) > 60 (> 60) BUN/Creatinine Ratio 14 (6-26) Glucose 329 H (70-105) mg/dL Calculated Osmolality 304 H (280-300) Calcium 9.5 (8.6-10.3) mg/dL Troponin I < 0.03 (< 0.04) ng/mL B-Natriuretic Peptide (Less than 100) pg/mL TSH 5.843 H (0.340-5.600) mcIU/mL Urine Color (Yellow) Urine Clarity (Clear) Urine pH (5.0-8.0) pH Units Ur Specific [place] (1.010-1.025) Urine Protein (Neg-Trace) mg/dL Urine Glucose (UA) (Normal) mg/dL Urine Ketones (Negative) mg/dL Urine Blood (Negative) Urine Nitrite (Negative) Urine Bilirubin (Negative) Urine Urobilinogen (Normal) mg/dL Ur Leukocyte Esterase (Negative) Urine Microscopic RBC (0-3) per hpf Urine Microscopic WBC (0-3) per hpf Ur Squamous Epith Cells (None-Few) per lpf Urine Bacteria (None-Few) per hpf Hyaline Casts (None-Few) per lpf Ur Culture Indicated? (NO) 10/18/18 10/18/18 Range/Units 05:10 05:44 WBC (4.3-11.1) K/mcL RBC (3.82-4.97) M/mcL Hgb (11.5-15.4) g/dL Hct (35.3-44.9) % MCV (83.0-100.0) fL MCH (28.0-33.3) pg MCHC (31.6-35.5) g/dL RDW (11.5-14.5) % Plt Count (140-400) K/mcL MPV (9.4-12.4) fL Immature Gran % (0-4) % Seg Neutrophils % % Lymphocytes % % Monocytes % % Eosinophils % % Basophils % % Neutrophils # (1.6-8.9) K/mcL Lymphocytes # (0.6-4.6) K/mcL Monocytes # (0.0-1.3) K/mcL Eosinophils # (0.0-0.6) K/mcL Basophils # (0.0-0.2) K/mcL PT (9.4-12.1) Seconds INR APTT (26.0-36.0) Seconds Sodium (136-145) mEq/L Potassium (3.5-5.1) mEq/L Chloride (98-107) mEq/L Carbon Dioxide (23-29) mEq/L BUN (6-20) mg/dL Creatinine (0.60-1.20) mg/dL Est GFR ( Amer) (> 60) Est GFR (Non-Af Amer) (> 60) BUN/Creatinine Ratio (6-26) Glucose (70-105) mg/dL Calculated Osmolality (280-300) Calcium (8.6-10.3) mg/dL Troponin I (< 0.04) ng/mL B-Natriuretic Peptide 100 H (Less than 100) pg/mL TSH (0.340-5.600) mcIU/mL Urine Color Yellow (Yellow) Urine Clarity Clear (Clear) Urine pH 7.0 (5.0-8.0) pH Units Ur Specific [place] 1.005 L (1.010-1.025) Urine Protein 30 H (Neg-Trace) mg/dL Urine Glucose (UA) 250 H (Normal) mg/dL Urine Ketones Negative (Negative) mg/dL Urine Blood Negative (Negative) Urine Nitrite Negative (Negative) Urine Bilirubin Negative (Negative) Urine Urobilinogen Normal (Normal) mg/dL Ur Leukocyte Esterase Negative (Negative) Urine Microscopic RBC 0-3 (0-3) per hpf Urine Microscopic WBC 0-3 (0-3) per hpf Ur Squamous Epith Cells None Seen (None-Few) per lpf Urine Bacteria None Seen (None-Few) per hpf Hyaline Casts None Seen (None-Few) per lpf Ur Culture Indicated? NO (NO) - Radiology Data Radiology results reviewed: Yes I reviewed the patient's radiology results. - EKG Data EKG attestation: Yes I reviewed and interpreted this EKG. Rate: Reports: tachycardia Rhythm: Reports: A.Fib [place]/QRS: Reports: normal ST segment depression in: Reports: II, III, aVR, v5, v6 When compared to previous EKG there are: changes noted Interpretation: Reports: other (afib with RVR)
[2018-10-18 05:31] LABS: Basophils % 0.6 %; Eosinophils # 0.1 K/mcL (0.0-0.6); Eosinophils % 1.9 %; Hematocrit 40.9 % (35.3-44.9); Hemoglobin 13.1 g/dL (11.5-15.4); Immature Granulocytes % 0.3 % (0-4); Lymphocytes # 2.4 K/mcL (0.6-4.6); Lymphocytes % 32.6 %; Mean Corpuscular Hemoglobin 25.8 pg (28.0-33.3); Mean Corpuscular Volume 80.5 fL (83.0-100.0); Mean Platelet Volume 10.6 fL (9.4-12.4); Monocytes # 0.3 K/mcL (0.0-1.3); Monocytes % 3.4 %; Neutrophils # 4.4 K/mcL (1.6-8.9); Platelet Count 301 K/mcL (140-400); Red Blood Count 5.08 M/mcL (3.82-4.97); Red Cell Distribution Width 14.6 % (11.5-14.5); Segmented Neutrophils % 61.2 %
[2018-10-18 05:39] LABS: INR 1.1; Prothrombin Time 12.8 Seconds (9.4-12.1)
[2018-10-18 05:42] LABS: Activated Partial Thrombo Time 32.5 Seconds (26.0-36.0)
[2018-10-18 05:50] LABS: BUN/Creatinine Ratio 14 (6-26); Blood Urea Nitrogen 10 mg/dL (6-20); Calcium 9.5 mg/dL (8.6-10.3); Carbon Dioxide 25 mEq/L (23-29); Chloride 103 mEq/L (98-107); Glucose 329 mg/dL (70-105); Osmolality,Calculated 304 (280-300); Potassium 3.1 mEq/L (3.5-5.1); Sodium 141 mEq/L (136-145); eGFR For Non-African Americans > 60 (> 60)
[2018-10-18 05:52] LABS: Troponin I < 0.03 ng/mL (< 0.04)
--- NOTE | 2018-10-18 05:52 | Emergency Department Note ---
Disposition Clinical Impression: Atrial fibrillation with RVR Disposition: Admitted As Inpatient Condition: Good Referrals: Sammy Vela MD [Primary Care Provider] - Forms: ED Satisfaction Letter General Adult HPI - General Chief complaint: ED Shortness of Breath/Dyspnea Stated complaint: Ying Time Seen by Provider: 10/18/18 05:04 Source: patient, EMS Limitations: no limitations Nursing Notes Reviewed: Yes Vital Signs Reviewed: Yes - History of Present Illness Pain Scale: 0 - Related Data Home Medications Medication Instructions Recorded Confirmed ARIPiprazole [Abilify] 15 mg PO HS 01/14/18 10/18/18 Albuterol Sulfate [Ventolin Hfa] 2 puff IH Q4H PRN 01/14/18 10/18/18 Budesonide [Pulmicort] 2 puff IH DAILY 01/14/18 10/18/18 Cholecalciferol (D-3) [Vitamin D] 1,000 unit PO DAILY 01/14/18 10/18/18 Doxepin [Sinequan] 50 mg PO HS 01/14/18 10/18/18 Furosemide [Lasix] 20 mg PO DAILY PRN 01/14/18 10/18/18 Linagliptin [Tradjenta] 5 mg PO DAILY 01/14/18 10/18/18 Lisinopril [Zestril] 40 mg PO BID 01/14/18 10/18/18 Simvastatin [Zocor] 10 mg PO HS 01/14/18 10/18/18 diazePAM [Valium] 5 mg PO BID PRN 01/14/18 10/18/18 Exenatide Microspheres [Bydureon 2 mg PO SHORE 01/15/18 10/18/18 Pen] Latanoprost [Xalatan] 1 drop BOTH EYES HS 01/15/18 10/18/18 Melatonin 5 mg PO HS PRN 01/15/18 10/18/18 Metformin HCl 1,000 mg PO BID 01/15/18 10/18/18 FLUoxetine HCl [Fluoxetine HCl] 40 mg PO DAILY 10/18/18 10/18/18 Loratadine [Claritin] 10 mg PO DAILY 10/18/18 10/18/18 Previous Rx's Medication Instructions Recorded cloNIDine HCl [CloNIDine HCl] 0.2 mg PO TID #90 tablet 01/17/18 Allergies Allergy/AdvReac Type Severity Reaction Status Date / Time Penicillins [PCN] Allergy Severe Difficulty Verified 01/15/18 13:20 Breathing [place] Allergy Swelling Verified 01/15/18 13:20 of Lip/Tongue/Throat [place] Allergy Swelling Verified 01/15/18 13:20 of Lip/Tongue/Throat Past Medical History - Past Medical History Medical history: Reports: diabetes, GERD, hypertension, renal disease Surgical history: Reports: , cholecystectomy, other Psychiatric history: Reports: anxiety, depression COMFORT FILLER history: Reports: no COMFORT FILLER history - Social History Smoking Status: Never smoker Smokeless Tobacco Status: No Alcohol use: Reports: none Drug use: Reports: none Physical Exam - General Limitations: no limitations General appearance: alert, in no apparent distress Course Vital Signs Temperature 97.8 F 10/18/18 05:01 Pulse Rate 174 10/18/18 05:01 Respiratory Rate 16 10/18/18 05:01 Blood Pressure 157/143 10/18/18 05:01 O2 Sat by Pulse Oximetry 97 10/18/18 05:01 Temperature 97.8 F 10/18/18 05:01 Pulse Rate 149 10/18/18 06:25 Respiratory Rate 18 10/18/18 06:25 Blood Pressure 214/156 10/18/18 06:25 O2 Sat by Pulse Oximetry 96 10/18/18 06:25 Oxygen Delivery Oxygen Delivery Room Air Medical Decision Making - Medical Records Medical records reviewed: Yes I reviewed the patient's medical records. - Lab Data Lab results reviewed: Yes I reviewed the patient's lab results. Result diagrams: 10/18/18 05:10 10/18/18 05:10 Lab Results 10/18/18 10/18/18 10/18/18 Range/Units 05:10 05:10 05:10 WBC 7.3 (4.3-11.1) K/mcL RBC 5.08 H (3.82-4.97) M/mcL Hgb 13.1 (11.5-15.4) g/dL Hct 40.9 (35.3-44.9) % MCV 80.5 L (83.0-100.0) fL MCH 25.8 L (28.0-33.3) pg MCHC 32.0 (31.6-35.5) g/dL RDW 14.6 H (11.5-14.5) % Plt Count 301 (140-400) K/mcL MPV 10.6 (9.4-12.4) fL Immature Gran % 0.3 (0-4) % Seg Neutrophils % 61.2 % Lymphocytes % 32.6 % Monocytes % 3.4 % Eosinophils % 1.9 % Basophils % 0.6 % Neutrophils # 4.4 (1.6-8.9) K/mcL Lymphocytes # 2.4 (0.6-4.6) K/mcL Monocytes # 0.3 (0.0-1.3) K/mcL Eosinophils # 0.1 (0.0-0.6) K/mcL Basophils # 0.0 (0.0-0.2) K/mcL PT 12.8 H (9.4-12.1) Seconds INR 1.1 APTT 32.5 (26.0-36.0) Seconds Sodium 141 (136-145) mEq/L Potassium 3.1 L (3.5-5.1) mEq/L Chloride 103 (98-107) mEq/L Carbon Dioxide 25 (23-29) mEq/L BUN 10 (6-20) mg/dL Creatinine 0.72 (0.60-1.20) mg/dL Est GFR ( Amer) > 60 (> 60) Est GFR (Non-Af Amer) > 60 (> 60) BUN/Creatinine Ratio 14 (6-26) Glucose 329 H (70-105) mg/dL Calculated Osmolality 304 H (280-300) Calcium 9.5 (8.6-10.3) mg/dL Troponin I < 0.03 (< 0.04) ng/mL B-Natriuretic Peptide (Less than 100) pg/mL TSH 5.843 H (0.340-5.600) mcIU/mL Urine Color (Yellow) Urine Clarity (Clear) Urine pH (5.0-8.0) pH Units Ur Specific [place] (1.010-1.025) Urine Protein (Neg-Trace) mg/dL Urine Glucose (UA) (Normal) mg/dL Urine Ketones (Negative) mg/dL Urine Blood (Negative) Urine Nitrite (Negative) Urine Bilirubin (Negative) Urine Urobilinogen (Normal) mg/dL Ur Leukocyte Esterase (Negative) Urine Microscopic RBC (0-3) per hpf Urine Microscopic WBC (0-3) per hpf Ur Squamous Epith Cells (None-Few) per lpf Urine Bacteria (None-Few) per hpf Hyaline Casts (None-Few) per lpf Ur Culture Indicated? (NO) 10/18/18 10/18/18 Range/Units 05:10 05:44 WBC (4.3-11.1) K/mcL RBC (3.82-4.97) M/mcL Hgb (11.5-15.4) g/dL Hct (35.3-44.9) % MCV (83.0-100.0) fL MCH (28.0-33.3) pg MCHC (31.6-35.5) g/dL RDW (11.5-14.5) % Plt Count (140-400) K/mcL MPV (9.4-12.4) fL Immature Gran % (0-4) % Seg Neutrophils % % Lymphocytes % % Monocytes % % Eosinophils % % Basophils % % Neutrophils # (1.6-8.9) K/mcL Lymphocytes # (0.6-4.6) K/mcL Monocytes # (0.0-1.3) K/mcL Eosinophils # (0.0-0.6) K/mcL Basophils # (0.0-0.2) K/mcL PT (9.4-12.1) Seconds INR APTT (26.0-36.0) Seconds Sodium (136-145) mEq/L Potassium (3.5-5.1) mEq/L Chloride (98-107) mEq/L Carbon Dioxide (23-29) mEq/L BUN (6-20) mg/dL Creatinine (0.60-1.20) mg/dL Est GFR ( Amer) (> 60) Est GFR (Non-Af Amer) (> 60) BUN/Creatinine Ratio (6-26) Glucose (70-105) mg/dL Calculated Osmolality (280-300) Calcium (8.6-10.3) mg/dL Troponin I (< 0.04) ng/mL B-Natriuretic Peptide 100 H (Less than 100) pg/mL TSH (0.340-5.600) mcIU/mL Urine Color Yellow (Yellow) Urine Clarity Clear (Clear) Urine pH 7.0 (5.0-8.0) pH Units Ur Specific [place] 1.005 L (1.010-1.025) Urine Protein 30 H (Neg-Trace) mg/dL Urine Glucose (UA) 250 H (Normal) mg/dL Urine Ketones Negative (Negative) mg/dL Urine Blood Negative (Negative) Urine Nitrite Negative (Negative) Urine Bilirubin Negative (Negative) Urine Urobilinogen Normal (Normal) mg/dL Ur Leukocyte Esterase Negative (Negative) Urine Microscopic RBC 0-3 (0-3) per hpf Urine Microscopic WBC 0-3 (0-3) per hpf Ur Squamous Epith Cells None Seen (None-Few) per lpf Urine Bacteria None Seen (None-Few) per hpf Hyaline Casts None Seen (None-Few) per lpf Ur Culture Indicated? NO (NO) - Radiology Data Radiology results reviewed: Yes I reviewed the patient's radiology results. Chest X-Ray 10/18/18 05:06 IMPRESSION: Interstitial edema. D/ / Giancarlo Zhu MD / Giancarlo Zhu MD Interpreting Provider: Giancarlo Zhu MD - EKG Data EKG #1 EKG attestation: Yes I reviewed and interpreted this EKG. EKG results narrative: EKG shows atrial fibrillation with RVR with ventricular rate of 167. ST segment depressions in the inferior and anterolateral leads, likely rate related. Critical Care Time Critical Care Time: Yes Total Critical Care Time: 40 Attestation: Critical care performed: Time is exclusive of separately billable procedures. Time includes: direct patient care, patient reassessment, coordination of patient care, interpretation of data (laboratory data, radiology data, and respiratory data), review of patient's medical records, medical consultation and documentation of patient care. Procedures included in critical care time: Procedures excluded from critical care time: Attestation Statement - Attestation Attestation: I, David Pierce MD, personally evaluated this patient and discussed their management with the midlevel provicer, PAC/SENIOR SECURITY ENGINEER. I reviewed the midlevel provider's note and agree with the documented findings, medical decision making, and plan of care. 53-year-old female presents to the emergency department by EMS with a complaint of onset of palpitations about 2 AM this morning. Symptoms started while she was sitting watching television. She did have some shortness of breath but no chest pain with the episode. She also states that she felt a little lightheaded earlier but not really dizzy. No syncope. No prior history of similar symptoms. No history of heart disease. She does have a history of hypertension. She denies taking any cold medicines or decongestants. She denies any increased caffeine intake. She states she did just recently finished taking Tamiflu. On examination patient is a well-developed well-nourished female in no acute distress. She is alert and oriented 3. There is no cyanosis or diaphoresis. Breath sounds are clear and equal bilaterally. Heart irregularly irregular with a significant tachycardia. Abdomen is soft and nontender with normal bowel sounds. No pedal edema. No gross focal neurological deficits. EKG shows atrial fibrillation with RVR with ventricular rate of 167. ST segment depressions in the inferior and anterolateral leads, likely rate related. Chest x-ray showed some interstitial edema. No focal consolidation. Labs reviewed. Troponin negative. Patient received Cardizem 15 mg IV bolus and was started on a Cardizem infusion. The hospitalist, Dr. Toscano, was consulted and accepted admission of the patient.
[2018-10-18 05:58] LABS: Bilirubin,Urine Negative (Negative); Blood,Urine Negative (Negative); Clarity,Urine Clear (Clear); Color,Urine Yellow (Yellow); Glucose,Urine (UA) 250 mg/dL (Normal); Ketones,Urine Negative (Negative); Leukocyte Esterase,Urine Negative (Negative); Nitrite,Urine Negative (Negative); Protein,Urine 30 mg/dL (Neg-Trace); Specific Gravity,Urine 1.005 (1.010-1.025); Urobilinogen,Urine Normal (Normal)
[2018-10-18 05:59] LABS: Bacteria,Urine None Seen per hpf (None-Few); Hyaline Casts,Urine None Seen per lpf (None-Few); RBC,Urine 0-3 per hpf (0-3); Squamous Epithelial Cell,Urine None Seen per lpf (None-Few); WBC,Urine 0-3 per hpf (0-3)
[2018-10-18 06:05] LABS: Thyroid Stimulating Hormone 5.843 mcIU/mL (0.340-5.600)
[2018-10-18] MEDS ORDERED: Naloxone 0.4 MG/ML INJ IVP PRN (08:57)
[2018-10-18] MEDS ORDERED: Dextrose Gel 15 GM/37.5 ML TUBE PO PRN ×2 (08:58)
[2018-10-18] MEDS ORDERED: *HR* Dextrose 50 % in Water (Syg) 50 ML SYRINGE IVP PRN (08:58)
[2018-10-18] MEDS ORDERED: D5% in Water 1,000 ML IVC PRN (08:58)
[2018-10-18] MEDS ORDERED: Furosemide 20 MG TABLET PO PRN (09:00)
[2018-10-18] MEDS ORDERED: diazePAM 5 MG TABLET PO PRN (09:02)
[2018-10-18] MEDS ORDERED: Melatonin 3 MG TABLET PO PRN (09:02)
[2018-10-18] MEDS: cloNIDine HCl 0.1 MG TABLET PO SCH ×3 (09:23→20:53)
[2018-10-18] MEDS: Lisinopril 20 MG TABLET PO SCH ×2 (09:23→20:54)
[2018-10-18] MEDS: FLUoxetine 20 MG CAPSULE PO SCH (09:26)
[2018-10-18] MEDS: *HR* Enoxaparin 120 MG/0.8 ML SYRINGE SQ SCH ×2 (09:26→20:53)
--- NOTE | 2018-10-18 09:54 | Internal Med History&Physical ---
Date of Encounter: 10/18/18 Time of Encounter: 08:00 Internal Medicine - H&P: HPI Chief complaint: Palpitation Admitted From: Home Plans for Post Hospital Care: Home History of present illness: Ms. Alamo is a 53 year old female present to ER for palpitation. Does medical history is significant for hypertension, diabetes, COPD, history of CVA, s/p bariatric surgery. Patient said since 2 AM this morning, she feels heartbeat is racing. Patient denies chest pain, nausea, diaphoresis. Patient has no cough or fever. Patient has mild shortness of breath. In the emergency room, patient was found A. fib with rapid ventricular response. Patient has no known history of A. fib previously. Patient was started on Cardizem drip and admitted for further management. Patient was found hypokalemia and 40 mEq by mouth potassium was given by ER. Past Med Surg Social Fam HX - Past Medical History Medical history: CVA, diabetes, GERD, hypertension, renal disease Additional medical history: Anxiety, depressive disorder, cerebral artery occlusion Psychiatric history: anxiety, depression - Past Surgical History Surgical History: , cholecystectomy, other Additional surgical history: Gastric By-pass surgery - Social History Smoking Status: Never smoker Smokeless Tobacco Status: No Alcohol use: none Drug use: none - Family History Mother Living Status: Hx Family Cardiac Disorders: Yes Hx Family Respiratory Disorders: No Hx Family Cancer: No Hx Family GI Disorders: No Hx Family Endocrine Disorder: Yes Hx Family Neurologic Disorders: No Internal Medicine - H&P: Meds ARIPiprazole [Abilify] 15 mg PO HS 01/14/18 [History] Albuterol Sulfate [Ventolin Hfa] 2 puff IH Q4H PRN 01/14/18 [History] Budesonide [Pulmicort] 2 puff IH DAILY 01/14/18 [History] Cholecalciferol (D-3) [Vitamin D] 1,000 unit PO DAILY 01/14/18 [History] Doxepin [Sinequan] 50 mg PO HS 01/14/18 [History] Furosemide [Lasix] 20 mg PO DAILY PRN 01/14/18 [History] Linagliptin [Tradjenta] 5 mg PO DAILY 01/14/18 [History] Lisinopril [Zestril] 40 mg PO BID 01/14/18 [History] Simvastatin [Zocor] 10 mg PO HS 01/14/18 [History] diazePAM [Valium] 5 mg PO BID PRN 01/14/18 [History] Exenatide Microspheres [Bydureon Pen] 2 mg PO SHORE 01/15/18 [History] Latanoprost [Xalatan] 1 drop BOTH EYES HS 01/15/18 [History] Melatonin 5 mg PO HS PRN 01/15/18 [History] cloNIDine HCl [CloNIDine HCl] 0.2 mg PO TID #90 tablet 01/17/18 [Rx] FLUoxetine HCl [Fluoxetine HCl] 40 mg PO DAILY 10/18/18 [History] Loratadine [Claritin] 10 mg PO DAILY 10/18/18 [History] Metformin HCl 1,000 mg PO BID 10/18/18 [History] Allergy/AdvReac Type Severity Reaction Status Date / Time Penicillins [PCN] Allergy Severe Difficulty Verified 10/18/18 09:00 Breathing [place] Allergy Swelling Verified 01/15/18 13:20 of Lip/Tongue/Throat Tomato Allergy Swelling Verified 01/15/18 13:20 of Lip/Tongue/Throat All Systems PM: A 10-system review of systems was performed and is negative for pertinent findings except as documented above in the HPI. - Constitutional Vitals: Temp Pulse Resp BP Pulse Ox 98.7 F 131 16 183/112 96 10/18/18 08:10 10/18/18 09:00 10/18/18 09:00 10/18/18 09:00 10/18/18 09:00 Exam: Pt is AAO x 3, in NAD HEENT: NC/AT, PERRL Neck: Supple, no JVD, no LAD Lungs: CTA b/l Heart: S1S2, irregularly irregular Abd: Soft, nontender, BS present Ext: ROM wnl, no pedal edema Neuro: No focal deficit Internal Med - H&P Results - Labs CBC & Chem 7: 10/18/18 05:10 10/18/18 05:10 Labs: Short CBC 10/18/18 Range/Units 05:10 WBC 7.3 (4.3-11.1) K/mcL Hgb 13.1 (11.5-15.4) g/dL Hct 40.9 (35.3-44.9) % Plt Count 301 (140-400) K/mcL Neutrophils # 4.4 (1.6-8.9) K/mcL BMP 10/18/18 05:10 Sodium 141 Potassium 3.1 L Chloride 103 Carbon Dioxide 25 BUN 10 Creatinine 0.72 Glucose 329 H Calcium 9.5 Cardiac Enzymes 10/18/18 Range/Units 05:10 Troponin I < 0.03 (< 0.04) ng/mL Urine 10/18/18 Range/Units 05:44 Urine Color Yellow (Yellow) Urine Clarity Clear (Clear) Urine pH 7.0 (5.0-8.0) pH Units Ur Specific [place] 1.005 L (1.010-1.025) Urine Protein 30 H (Neg-Trace) mg/dL Urine Glucose (UA) 250 H (Normal) mg/dL - Impressions ITS Impressions Chest X-Ray 10/18/18 05:06 IMPRESSION: Interstitial edema. D/ / Giancarlo Zhu MD / Giancarlo Zhu MD Interpreting Provider: Giancarlo Zhu MD - Assessment and Plan (1) Diabetes mellitus Current Visit: Yes Status: Acute Assessment and plan: Place patient on sliding scale insulin. Closely monitor glucose level Qualifiers: Diabetes mellitus type: type 2 Diabetes mellitus long-term insulin use: without manager terminal use Diabetes mellitus complication status: without complication Qualified Code(s): E11.9 - Type 2 diabetes mellitus without complications (2) Hypertension Current Visit: Yes Status: Acute Assessment and plan: Continue home medications. Closely monitor BP level Qualifiers: Hypertension type: essential hypertension Qualified Code(s): I10 - [place] tial (primary) hypertension (3) COPD (chronic obstructive pulmonary disease) Current Visit: Yes Status: Acute Assessment and plan: To has no wheezing. No signs of exacerbation. Continue home medications Qualifiers: COPD type: emphysema Emphysema type: unspecified Qualified Code(s): J43.9 - Emphysema, unspecified (4) Morbid obesity Current Visit: Yes Status: Acute Assessment and plan: Patient has bariatric surgery. Continue lifestyle modification as outpatient (5) Hypokalemia Current Visit: Yes Status: Acute Assessment and plan: K 3.1. Patient has by mouth supplement in ER. Will give another 40 mEq potassium by mouth once. Follow-up potassium level in a.m. (6) Atrial fibrillation with RVR Current Visit: Yes Status: Acute Assessment and plan: Patient denies history of A. fib. New-onset A. fib with RVR. - Continue cardiac monitoring - TSH, Mg, echocardiogram - Continue Cardizem drip for rate control - Place patient on lovenox 1mg/kg sc q12 h for anticoagulation at this point. Further management per cardio - Consult cardiology (7) Hypertensive urgency Current Visit: No Status: Acute Assessment and plan: We will continue home medications and hydralazine IV as needed. Adjust medication for better blood pressure control. - Time Spent With Patient Total time spent is greater than 50% in coordination of care (as documented) at patient's floor/unit and/or counseling patient: 40 minutes Greater than 35 minutes
[2018-10-18] MEDS: Insulin LISPRO 300 UNITS/3 ML VIAL SQ SCH ×3 (11:35→20:55)
--- NOTE | 2018-10-18 12:24 | Cardiology Consult Note ---
Addendum entered and electronically signed by Timo Hernandez DO 10/18/18 13:39: I have personally performed a face to face evaluation on this patient. I have r eviewed and agree with the care plan. History and exam by me shows: 53-year-old female with a history of gastric bypass. Presents with significant hypertension and newly diagnosed atrial fibrillation with RVR. Since my visit, patient spontaneously converted to sinus rhythm this afternoon. Agree with recommendations as outlined below. TTE pending. Titrate antihypertensives as necessary. We will need to consider ischemic evaluation, possibly as outpatient. Further recommendations to follow pending results of testing and response to therapy. Thanks, Timo Hernandez DO, [facility] Original Note: Date of Encounter: 10/18/18 Time of Encounter: 12:00 Assessment and Plan (1) Atrial fibrillation with RVR Current Visit: Yes Status: Acute Per cardiology: -a.fib RVR, was started on cardizem drip by ER. Of note, recent treatment for influenza. -Now cardizem drip is off and patient is SR, HR 70s. -[id number] score 5 (gender, HTN, DM, CVA). Currently on therapeutic lovenox. -Known VIR[place]. -Last TTE 2015 with LVEF 70%, mild concentric LVH, no significant valvular dysufnction noted, no wall motion abnormalities noted. -Current TTE pending. -Stress 2012 negative for ishemia or infarct. -K 3.1-replaced, Mg 1.3. -Will start coreg 3.125mg BID. -Agree with lovenox, pending TTE, [place] determine [facility] anticoagulation. -Will give Mg rider. Keep K greater than 2.0, Mg greater than 2. -Recommend compliance with CPAP. -consider outpatient stress test. (2) Hypertension Current Visit: Yes Status: Chronic Per cardiology: -Known HTN. -BPs 150-220s systolic. Denies dizziness, lightheadedness, headache. -ON clonidine, lisinopril. -will start coreg. -Continue to monitor. Qualifiers: Hypertension type: essential hypertension Qualified Code(s): I10 - Essential (primary) hypertension Discussion w patient/family: The assessment and plan as outlined above was discussed with the patient and/or family members who expressed understanding and agreement. All questions were answered. Thank you for involving us in the care of your patient. Please call with any questions. Discussed and reviewed with History of Present Illness Consult date: 10/18/18 Requesting physician: Aysha Alexander Consult reason: [email or web address] RVR Chief complaint: palpitations, shortness of breath History of present illness: Ms. Alamo is a 53 year old female with a relevant past medical history of HTN, DM, HLD, anxiety, CVA, s/p gastric bypass, asthma, who presented to [facility] with complaints of palpitations, shortness of breath. Patient also reports some dizziness, lightheadedness. Denies chest pain. Of note, was recently treated for influenza. Denies current symptoms. Past Med Surg Social Fam HX - Past Medical History Attestation: Yes The following information was validated with the patient. Source: patient, old records reviewed Medical history: CVA, diabetes, GERD, hypertension, renal disease Additional medical history: Anxiety, depressive disorder, cerebral artery occlusion Psychiatric history: anxiety, depression - Past Surgical History Surgical History: , cholecystectomy, other Additional surgical history: Gastric By-pass surgery - Social History Smoking Status: Never smoker Smokeless Tobacco Status: No Alcohol use: none Drug use: none - Family History Mother Living Status: Hx Family Cardiac Disorders: Yes Hx Family Respiratory Disorders: No Hx Family Cancer: No Hx Family GI Disorders: No Hx Family Endocrine Disorder: Yes Hx Family Neurologic Disorders: No Medications and Allergies ARIPiprazole [Abilify] 15 mg PO HS 01/14/18 [History] Albuterol Sulfate [Ventolin Hfa] 2 puff IH Q4H PRN 01/14/18 [History] Budesonide [Pulmicort] 2 puff IH DAILY 01/14/18 [History] Cholecalciferol (D-3) [Vitamin D] 1,000 unit PO DAILY 01/14/18 [History] Doxepin [Sinequan] 50 mg PO HS 01/14/18 [History] Furosemide [Lasix] 20 mg PO DAILY PRN 01/14/18 [History] Linagliptin [Tradjenta] 5 mg PO DAILY 01/14/18 [History] Lisinopril [Zestril] 40 mg PO BID 01/14/18 [History] Simvastatin [Zocor] 10 mg PO HS 01/14/18 [History] diazePAM [Valium] 5 mg PO BID PRN 01/14/18 [History] Exenatide Microspheres [Bydureon Pen] 2 mg PO SHORE 01/15/18 [History] Latanoprost [Xalatan] 1 drop BOTH EYES HS 01/15/18 [History] Melatonin 5 mg PO HS PRN 01/15/18 [History] cloNIDine HCl [CloNIDine HCl] 0.2 mg PO TID #90 tablet 01/17/18 [Rx] FLUoxetine HCl [Fluoxetine HCl] 40 mg PO DAILY 10/18/18 [History] Loratadine [Claritin] 10 mg PO DAILY 10/18/18 [History] Metformin HCl 1,000 mg PO BID 10/18/18 [History] Allergy/AdvReac Type Severity Reaction Status Date / Time Penicillins [PCN] Allergy Severe Difficulty Verified 10/18/18 09:00 Breathing Tippo Allergy Swelling Verified 01/15/18 13:20 of Lip/Tongue/Throat Tomato Allergy Swelling Verified 01/15/18 13:20 of Lip/Tongue/Throat All Systems Review: The remainder of the systems were reviewed and are negative - Cardiovascular Cardiovascular: as per HPI, lightheadedness, palpitations Physical Examination Vital Signs, Last 4 Hours Temp Pulse Resp BP Pulse Ox 10/18/18 11:00 68 16 174/90 96 10/18/18 10:51 98.0 F 10/18/18 10:00 111 16 155/108 96 10/18/18 09:00 131 16 183/112 96 General: Conversant, No Apparent Distress HEENT: Atraumatic, Normocephaly, Mucus Membranes Moist Neck: No JVD, Normal carotid pulses Cardiac: Reg Rate and Rhythm, Normal S1 and S2, No Murmur Lungs: Normal Breath Sounds, No Wheeze, Rales, Rhonchi Neuro: Alert and responsive, No focal deficits noted Abdomen: Soft, Non-Tender Skin: No rashes noted on visualized skin Musculoskeletal: No Chest Wall Tenderness Extremities: No Clubbing, No Cyanosis, No Edema, Normal Pulses Results 10/18/18 05:10 10/18/18 05:10 Lab Results Impressions Chest X-Ray 10/18/18 05:06 IMPRESSION: Interstitial edema. D/ / Giancarlo Zhu MD / Giancarlo Zhu MD Interpreting Provider: Giancarlo Zhu MD Active Medications Albuterol Sulfate (Albuterol Inhaler) 2 puff IH Q4H PRN PRN Reason: Shortness Of Breath Stop: 04/19/19 09:03 Aripiprazole (Abilify) 15 mg PO HS LINDA Stop: 04/19/19 21:01 Aspirin (Aspirin Ec) 81 mg PO DAILY LINDA Stop: 04/20/19 09:01 Budesonide (Pulmicort Neb) 0.25 mg IH DAILYR LINDA Stop: 04/20/19 10:01 Clonidine HCl (Clonidine Hcl) 0.2 mg PO TID LINDA Stop: 04/19/19 09:01 Last Admin: 10/18/18 09:23 Dose: 0.2 mg Dextrose/Water (Dextrose 50% (Syg)) 25 ml IVP AD PRN PRN Reason: Hypoglycemia Stop: 04/19/19 08:59 Diazepam (Valium) 5 mg PO BID PRN PRN Reason: Anxiety Stop: 04/19/19 09:03 Doxepin HCl (Sinequan) 50 mg PO HS LINDA Stop: 04/19/19 21:01 Enoxaparin Sodium (Lovenox) 110 mg 1 mg/kg (110 mg) SQ Q12H LINDA; Protocol Stop: 04/19/19 09:02 Last Admin: 10/18/18 09:26 Dose: 110 mg Fluoxetine HCl (Prozac) 40 mg PO DAILY LINDA Stop: 04/19/19 09:16 Last Admin: 10/18/18 09:26 Dose: 40 mg Furosemide (Lasix) 20 mg PO DAILY PRN PRN Reason: Swelling Stop: 04/19/19 09:01 Glucagon (Glucagen) 1 mg IM ONCE PRN PRN Reason: Hypoglycemia Stop: 04/19/19 08:59 Glucose (Gluctose) 15 gm PO ONCE PRN PRN Reason: Hypoglycemia Stop: 04/19/19 08:59 Glucose (Gluctose) 30 gm PO ONCE PRN PRN Reason: Hypoglycemia Stop: 04/19/19 08:59 Hydralazine HCl (Hydralazine) 10 mg IVP Q6HR PRN PRN Reason: Hypertension Stop: 04/19/19 10:04 Dextrose (Dextrose 5%) 1,000 mls @ 100 mls/hr IVC .Q10H PRN PRN Reason: HYPOGLYCEMIA Stop: 04/19/19 08:59 Diltiazem HCl 125 mg/ Sodium (Chloride) 125 mls @ 5 mls/hr IVC .Q24H LINDA; Protocol Stop: 04/19/19 05:16 Last Admin: 10/18/18 11:26 Dose: Not Given Magnesium Sulfate 2 gm/ Sodium (Chloride) 104 mls @ 104 mls/hr IVPB ONCE ONE Stop: 10/18/18 12:40 Last Admin: 10/18/18 12:10 Dose: 104 mls/hr Insulin Human Lispro (Humalog) 0 units SQ HS LINDA; Protocol Stop: 04/19/19 21:01 Insulin Human Lispro (Humalog) 0 units SQ TIDAC LINDA; Protocol Stop: 04/19/19 11:31 Last Admin: 10/18/18 11:35 Dose: 10 units Latanoprost (Xalatan) 1 drop BOTH EYES HS LINDA; Protocol Stop: 04/19/19 21:01 Lisinopril (Zestril) 40 mg PO BID LINDA; Protocol Stop: 04/19/19 09:01 Last Admin: 10/18/18 09:23 Dose: 40 mg Melatonin (Melatonin) 6 mg PO HS PRN PRN Reason: Sleep Stop: 04/19/19 09:03 Naloxone HCl (Narcan) 0.4 mg IVP Q2M PRN PRN Reason: SEE COMMENTS Stop: 04/19/19 08:58 Simvastatin (Zocor) 10 mg PO HS LINDA Stop: 04/19/19 21:01 Vitamin D (Vitamin D) 1,000 unit PO DAILY LINDA Stop: 04/20/19 09:01 Laboratory Tests 10/18/18 10/18/18 10/18/18 05:10 05:10 10:10 Hgb 13.1 Potassium 3.1 L Creatinine 0.72 Magnesium 1.3 L Troponin I < 0.03 TSH 5.843 H - Imaging and Cardiology Chest Xray: report reviewed Stress Test: report reviewed Echo: pending, report reviewed - EKG Interpretation EKG results cardiology: personally reviewed (ECG with a.fib RVR, HR), other (Currently SR, HR 70s at bedside.) Consult Discharge Plan - Plan Referrals: Sammy Vela MD [Primary Care Provider] -
[2018-10-18] MEDS ORDERED: Perflutren Lipid Microsphere 1.3 ML in 0.9 % Sodium Chloride 8.7 ML IVP ONE (12:57)
--- NOTE | 2018-10-18 16:41 | Electrocardiograph Report ---
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
[2018-10-18 18:08] LABS: Magnesium 1.9 mg/dL (1.6-2.6); Potassium 3.5 mEq/L (3.5-5.1)
[2018-10-18] MEDS: ARIPiprazole 10 MG TABLET PO SCH (20:53)
[2018-10-18] MEDS: Latanoprost 2.5 ML BOTTLE BOTH EYES SCH (20:54)
[2018-10-19 04:42] LABS: Basophils % 0.3 %; Eosinophils # 0.2 K/mcL (0.0-0.6); Eosinophils % 2.4 %; Hematocrit 34.4 % (35.3-44.9); Immature Granulocytes % 0.6 % (0-4); Lymphocytes # 2.7 K/mcL (0.6-4.6); Lymphocytes % 42.2 %; Mean Corpuscular HGB Conc 31.7 g/dL (31.6-35.5); Mean Corpuscular Hemoglobin 26.1 pg (28.0-33.3); Mean Corpuscular Volume 82.3 fL (83.0-100.0); Mean Platelet Volume 10.7 fL (9.4-12.4); Monocytes # 0.3 K/mcL (0.0-1.3); Monocytes % 4.1 %; Neutrophils # 3.2 K/mcL (1.6-8.9); Platelet Count 264 K/mcL (140-400); Red Blood Count 4.18 M/mcL (3.82-4.97); Segmented Neutrophils % 50.4 %
[2018-10-19 04:43] LABS: Hemoglobin 10.9 g/dL (11.5-15.4)
[2018-10-19 05:01] LABS: BUN/Creatinine Ratio 21 (6-26); Blood Urea Nitrogen 15 mg/dL (6-20); Calcium 8.8 mg/dL (8.6-10.3); Carbon Dioxide 23 mEq/L (23-29); Chloride 108 mEq/L (98-107); Glucose 234 mg/dL (70-105); Magnesium 2.2 mg/dL (1.6-2.6); Osmolality,Calculated 298 (280-300); Potassium 3.9 mEq/L (3.5-5.1); Sodium 140 mEq/L (136-145); eGFR For Non-African Americans > 60 (> 60)
[2018-10-19] MEDS: *HR* Enoxaparin 120 MG/0.8 ML SYRINGE SQ SCH ×2 (08:10→21:39)
[2018-10-19] MEDS: Cholecalciferol (D-3) 1,000 UNIT TABLET PO SCH (08:11)
[2018-10-19] MEDS: FLUoxetine 20 MG CAPSULE PO SCH (08:11)
[2018-10-19] MEDS: Lisinopril 20 MG TABLET PO SCH ×2 (08:11→21:39)
[2018-10-19] MEDS: Aspirin Enteric Coated 81 MG Tablet PO SCH (08:11)
[2018-10-19] MEDS: cloNIDine HCl 0.1 MG TABLET PO SCH ×3 (08:11→21:39)
[2018-10-19] MEDS: Insulin LISPRO 300 UNITS/3 ML VIAL SQ SCH ×4 (08:20→21:44)
--- NOTE | 2018-10-19 09:11 | Cardiology Progress Note ---
<Ananth Randolph - Last Filed: 10/19/18 13:01> Date of Encounter: 10/19/18 Time of Encounter: 09:11 Assessment and Plan (1) Atrial fibrillation Current Visit: Yes Status: Acute Patient with known [place] presents with newly diagnosed atrial fibrillation with RVR. Patient spontaneously converted to sinus rhythm yesterday. Echo revealed LVEF 65-70%, moderate concentric left ventricular hypertrophy, moderate left ventricular diastolic dysfunction, normal right ventricular structure and function, and mild mitral regurgitation, mild tricuspid regu rgitation, and mild pulmonary hypertension. Now cardizem drip is off and patient is SR, HR 70s. Titrate antihypertensives as necessary. Stress 2013 negative for ishemia or infarct.We will need to consider ischemic evaluation, possibly as outpatient. [id number] score 5 (gender, HTN, DM, CVA). Currently on therapeutic lovenox. Patient prefers being on a NOAC over Comadin for A-fib anticoagulation. Will major check Eliquis. Qualifiers: Atrial fibrillation type: paroxysmal Qualified Code(s): I48.0 - Paroxysmal atrial fibrillation (2) Hypertension Current Visit: Yes Status: Chronic Blood pressure controlled on Coreg, Clonidine, and Lisinopril. Continue to monitor. Qualifiers: Hypertension type: essential hypertension Qualified Code(s): I10 - Essential (primary) hypertension (3) Anemia Current Visit: Yes Status: Acute Acute drop in HGB level since admission, no signs of active bleeding. Recommend repeating HGB level. 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 All questions were answered. Thank you for involving us in the care of your patient. Please call with any questions. Subjective Principal diagnosis: Palpitations Interval history: Patient seen and examined resting comfortably in bed. She reports generalized weakness this morning but denies any new complaints. HR is in the 60-70s since starting Coreg. Echo was completed yesterday. Objective Vital Signs, Last 4 Hours Temp Pulse Resp BP Pulse Ox 10/19/18 08:28 97.6 F 64 16 139/82 96 General: Conversant, No Apparent Distress, Other (morbidly obese) HEENT: Atraumatic, Normocephaly, Mucus Membranes Moist Neck: No JVD, Normal carotid pulses Cardiac: Reg Rate and Rhythm, Normal S1 and S2, No Murmur Lungs: Normal Breath Sounds, No Wheeze, Rales, Rhonchi Neuro: Alert and responsive, No focal deficits noted Abdomen: Soft, Non-Tender Skin: No rashes noted on visualized skin Musculoskeletal: No Chest Wall Tenderness Extremities: No Clubbing, No Cyanosis, No Edema Results 10/19/18 03:57 10/19/18 03:57 Lab Results 10/18/18 10/18/18 10/19/18 10:10 17:07 03:57 WBC 6.4 Hgb 10.9 L D Hct 34.4 L Plt Count 264 Sodium Potassium 3.5 Chloride Carbon Dioxide BUN Creatinine Glucose Calcium Magnesium 1.3 L 1.9 10/19/18 03:57 WBC Hgb Hct Plt Count Sodium 140 Potassium 3.9 Chloride 108 H Carbon Dioxide 23 BUN 15 Creatinine 0.72 Glucose 234 H Calcium 8.8 Magnesium 2.2 Consult Discharge Plan - Plan Referrals: Sammy Vela MD [Primary Care Provider] - Prescriptions: Apixaban [Eliquis] 5 mg PO BID #60 tablet <April Montesinos - Last Filed: 10/19/18 17:22> Date of Encounter: 10/19/18 Assessment and Plan Discussion w patient/family: I examined this patient and my medical decision-making was reviewed with the Resident Physician. I agree with the documented findings, disposition and treatment plan as described. 53F presents with newly discovered AFIB RVR spontaneously converting to NSR. Has mild VIR[place] diagnosed in May 2018 - CPAP was indicated but patient had decided against treatment. Strongly encourage treatment with CPAP. Echo returned demonstrating normal LVEF and normal RV function. Patient denies chest pain. Troponins negative. CHADSVASC 5 - patient agreeable with Eliquis. Unfortunately, Hgb demonstrated decrease from 13.1 to 10.9 which is being repeated. No signs of bleeding. If this is erroneous, continue Eliquis. Objective Vital Signs, Last 4 Hours Temp Pulse Resp BP Pulse Ox 10/19/18 16:53 98.7 F 68 15 161/93 96 Results 10/19/18 03:57 10/19/18 03:57 Lab Results 10/18/18 10/19/18 10/19/18 17:07 03:57 03:57 WBC 6.4 Hgb 10.9 L D Hct 34.4 L Plt Count 264 Sodium 140 Potassium 3.5 3.9 Chloride 108 H Carbon Dioxide 23 BUN 15 Creatinine 0.72 Glucose 234 H Calcium 8.8 Magnesium 1.9 2.2
[2018-10-19] MEDS: Budesonide Neb 0.25 MG/2 ML IH SCH (11:19)
[2018-10-19] MEDS: ARIPiprazole 10 MG TABLET PO SCH (21:38)
[2018-10-19] MEDS: Latanoprost 2.5 ML BOTTLE BOTH EYES SCH (21:39)
--- NOTE | 2018-10-20 05:26 | Internal Med Progress Note ---
Hospitalist Progress Note - Encounter Date of Encounter: 10/19/18 Time of Encounter: 19:00 - Exam Vitals: Temp Pulse Resp BP Pulse Ox 97.8 F 68 17 146/98 98 10/20/18 03:45 10/20/18 03:45 10/20/18 03:45 10/20/18 03:45 10/20/18 03:45 Exam: xx - Assessment and Plan (1) Atrial fibrillation Current Visit: Yes Status: Acute (2) Diabetes mellitus Current Visit: Yes Status: Acute (3) Hypertension Current Visit: Yes Status: Chronic (4) COPD (chronic obstructive pulmonary disease) Current Visit: Yes Status: Acute (5) Morbid obesity Current Visit: Yes Status: Chronic (6) [place] (obstructive sleep apnea) Current Visit: Yes Status: Chronic - Time Spent with Patient Total time spent is greater than 50% in coordination of care (as documented) at patient's floor/unit and/or counseling patient: 25 - 35 minutes Plan of Care Discussed with: patient Internal Medicine: Result - Labs CBC & Chem 7: 10/19/18 03:57 10/19/18 03:57 - ABG Interpretation ABG results: PT/INR, D-dimer PT 12.8 Seconds (9.4-12.1) H 10/18/18 05:10 Consult Discharge Plan - Plan Referrals: Sammy Vela MD [Primary Care Provider] - Prescriptions: Apixaban [Eliquis] 5 mg PO BID #60 tablet (1) Atrial fibrillation Qualifiers: Atrial fibrillation type: paroxysmal Qualified Code(s): I48.0 - Paroxysmal atrial fibrillation (2) Diabetes mellitus Qualifiers: Diabetes mellitus type: type 2 Diabetes mellitus [facility] insulin use: without terminal operator use Diabetes mellitus complication status: without complication Qualified Code(s): E11.9 - Type 2 diabetes mellitus without complications (3) Hypertension Qualifiers: Hypertension type: essential hypertension Qualified Code(s): I10 - Essential (primary) hypertension (4) COPD (chronic obstructive pulmonary disease) Qualifiers: COPD type: emphysema Emphysema type: unspecified Qualified Code(s): J43.9 - Emphysema, unspecified
[2018-10-20] MEDS: Cholecalciferol (D-3) 1,000 UNIT TABLET PO SCH (08:36)
[2018-10-20] MEDS: Lisinopril 20 MG TABLET PO SCH (08:36)
[2018-10-20] MEDS: FLUoxetine 20 MG CAPSULE PO SCH (08:36)
[2018-10-20] MEDS: cloNIDine HCl 0.1 MG TABLET PO SCH (08:36)
[2018-10-20] MEDS: Aspirin Enteric Coated 81 MG Tablet PO SCH (08:36)
[2018-10-20] MEDS: *HR* Enoxaparin 120 MG/0.8 ML SYRINGE SQ SCH (08:37)
[2018-10-20] MEDS: Insulin LISPRO 300 UNITS/3 ML VIAL SQ SCH ×2 (08:40→12:02)
[2018-10-20 09:03] LABS: Hematocrit 36.7 % (35.3-44.9); Hemoglobin 11.1 g/dL (11.5-15.4); Mean Corpuscular HGB Conc 30.2 g/dL (31.6-35.5); Mean Corpuscular Hemoglobin 26.1 pg (28.0-33.3); Mean Corpuscular Volume 86.2 fL (83.0-100.0); Mean Platelet Volume 12.3 fL (9.4-12.4); Platelet Count 239 K/mcL (140-400); Red Blood Count 4.26 M/mcL (3.82-4.97); Red Cell Distribution Width 15.1 % (11.5-14.5)
--- NOTE | 2018-10-20 10:20 | Event Note ---
<JudeAnanth power - Last Filed: 10/20/18 13:03> Date of Encounter: 10/20/18 Time of Encounter: 08:20 - Cardiology Event Note Patient seen and examined resting comfortably in bed. Blood pressure is elevated this morning but she has not received her antihypertensive meds this morning. Patient appears in no acute distress, heart rate is regular rate and rhythm, lungs CTAB, and there is no pedal edema on exam. Patient was given morning dose of therapeutic Lovenox this morning and is scheduled to start Eliquis this evening. Eliquis cost will be $8.50 per month, which the patient agrees is affordable. Eliquis prescription has been delivered to the patient's bedside. Repeat hemoglobin level came back at 11.1 and patient denies any blood in stool, hematuria, epistaxis, or hemoptysis. No further inpatient testing from a cardiology standpoint. Patient is tolerating Coreg, titrate dose as needed and follow-up as an outpatient for atrial fibrillation and hypertension management. The assessment and plan as outlined above was discussed with the patient who expressed understanding and agreement. All questions were answered. Thank you for involving us in the care of your patient. Please call with any questions. <April Montesinos - Last Filed: 10/20/18 13:23> Date of Encounter: 10/20/18 - Cardiology Event Note Reviewed note above. Discussed with Resident Physician. Hemoglobin rechecked due to reduced count (13.1 to 10.9, now 11.1). If no evidence for active bleeding, recommend continuing Eliquis and having her follow up in the office. Defer to Hospitalist for anemia management. Will sign off.
[2018-10-20] MEDS: Budesonide Neb 0.25 MG/2 ML IH SCH (11:47)
--- NOTE | 2018-10-20 11:49 | Discharge Summary ---
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 Diabetes mellitus complication status: without complication Qualified Code(s): E11.9 - Type 2 diabetes mellitus without complications (3) Hypertension Priority: Secondary Status: Chronic Qualifiers: Hypertension type: essential hypertension Qualified Code(s): I10 - Essential (primary) hypertension (4) COPD (chronic obstructive pulmonary disease) Priority: Secondary Status: Chronic Qualifiers: COPD type: emphysema Emphysema type: unspecified Qualified Code(s): J43.9 - Emphysema, unspecified (5) Morbid obesity Priority: Secondary Status: Chronic (6) [place] (obstructive sleep apnea) Priority: Secondary Status: Chronic Hospital course: HOSPITAL COURSE: The patient is a 53-year-old woman with past medical history of type 2 diabetes mellitus, COPD and hypertension. She had CVA and bariatric surgery in the past. 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 Associated with mild dyspnea but not chest pain. She was found to have atrial fibrillation with rapid ventricular response. With hypokalemia. She was started on IV Cardizem drip for rate control. Together with subcutaneous Lovenox at 1 mg/kg subcutaneously every 12 hours. Cardiology was consulted. Echocardiogram has been done it showed ejection fraction of 65-70%; with moderate concentric left ventricular hypertrophy and moderate left ventricular diastolic dysfunction. TSH was checked it was 5.843. We switched her to oral Lopressor and Eliquis before the discharge. The patient cardioverted to normal sinus rhythm before the discharge. CONDITION AT DISCHARGE: She feels good. Denies chest pain. Denies palpitation. Denies difficulty breathing, coughing and wheezing. Skin: Free of rash and discoloration. Respiratory: Normal breath sounds with no crackles and wheezes bilaterally. CV: Heart is regular with no gallop or murmur. GI: Abdomen is flat and soft with no palpable mass or visceromegaly. Neuro exam: There is no focal deficits. Normal speech, swallowing and gait. SEE DISCHARGE ORDERS/MEDICATIONS She will continue Lopressor and Eliquis. Discharge discussed with: patient - Time Spent with Patient Total time spent providing and/or coordinating discharge services: Time spent: Greater than 30 minutes (40 minutes...) - Discharge Medications Prescriptions: New Apixaban [Eliquis] 5 mg PO BID #60 tablet Metoprolol Tartrate [Lopressor] 50 mg PO BID #60 tablet Continue Albuterol Sulfate [Ventolin Hfa] 2 puff IH Q4H PRN PRN Reason: Shortness Of Breath Simvastatin [Zocor] 10 mg PO HS Furosemide [Lasix] 20 mg PO DAILY PRN PRN Reason: Swelling Lisinopril [Zestril] 40 mg PO BID Linagliptin [Tradjenta] 5 mg PO DAILY ARIPiprazole [Abilify] 15 mg PO HS Doxepin [Sinequan] 50 mg PO HS diazePAM [Valium] 5 mg PO BID PRN PRN Reason: Anxiety Cholecalciferol (D-3) [Vitamin D] 1,000 unit PO DAILY Budesonide [Pulmicort] 2 puff IH DAILY Exenatide Microspheres [Bydureon Pen] 2 mg PO SHORE Latanoprost [Xalatan] 1 drop BOTH EYES HS Melatonin 5 mg PO HS PRN PRN Reason: Sleep FLUoxetine HCl [Fluoxetine HCl] 40 mg PO DAILY Loratadine [Claritin] 10 mg PO DAILY Metformin HCl 1,000 mg PO BID Changed cloNIDine HCl [CloNIDine HCl] 0.2 mg PO BID #90 tablet Home Medications: ARIPiprazole [Abilify] 15 mg PO HS 01/14/18 [History] Albuterol Sulfate [Ventolin Hfa] 2 puff IH Q4H PRN 01/14/18 [History] Budesonide [Pulmicort] 2 puff IH DAILY 01/14/18 [History] Cholecalciferol (D-3) [Vitamin D] 1,000 unit PO DAILY 01/14/18 [History] Doxepin [Sinequan] 50 mg PO HS 01/14/18 [History] Furosemide [Lasix] 20 mg PO DAILY PRN 01/14/18 [History] Linagliptin [Tradjenta] 5 mg PO DAILY 01/14/18 [History] Lisinopril [Zestril] 40 mg PO BID 01/14/18 [History] Simvastatin [Zocor] 10 mg PO HS 01/14/18 [History] diazePAM [Valium] 5 mg PO BID PRN 01/14/18 [History] Exenatide Microspheres [Bydureon Pen] 2 mg PO SHORE 01/15/18 [History] Latanoprost [Xalatan] 1 drop BOTH EYES HS 01/15/18 [History] Melatonin 5 mg PO HS PRN 01/15/18 [History] FLUoxetine HCl [Fluoxetine HCl] 40 mg PO DAILY 10/18/18 [History] Loratadine [Claritin] 10 mg PO DAILY 10/18/18 [History] Metformin HCl 1,000 mg PO BID 10/18/18 [History] Apixaban [Eliquis] 5 mg PO BID #60 tablet 10/19/18 [Rx] Metoprolol Tartrate [Lopressor] 50 mg PO BID #60 tablet 10/20/18 [Rx] cloNIDine HCl [CloNIDine HCl] 0.2 mg PO BID #90 tablet 10/20/18 [Rx] Allergies/Adverse Reactions: Allergy/AdvReac Type Severity Reaction Status Date / Time Penicillins [PCN] Allergy Severe Difficulty Verified 10/18/18 09:00 Breathing [place] Allergy Swelling Verified 01/15/18 13:20 of Lip/Tongue/Throat [place] Allergy Swelling Verified 01/15/18 13:20 of Lip/Tongue/Throat Date of admission: 10/18/18 06:51 Primary care physician: Sammy Vela MD Consults: 10/18/18 08:37 Consult to Cardiology [CONS] Routine Comment: Consulting Provider: Cardiology Laurence Reason for Consult: New A Fib RVR Call Completed: No Discharging clinician: Hernan Casey Anticipated date of discharge: 10/20/18 - Constitutional Vitals: Temp Pulse Resp BP Pulse Ox 97.6 F 71 19 180/93 97 10/20/18 10:36 10/20/18 10:36 10/20/18 10:36 10/20/18 10:36 10/20/18 10:36 General appearance: Present: A&O X 3, no acute distress, answers questions appropriately Exam: xx - Patient Status Disposition: Home, Self-Care Condition: Good Functional capacity at discharge: independent ambulation Overall status at discharge: patient is back to baseline - Discharge Instructions Instructions: Atrial Fibrillation (DC) Follow Up With: Sammy Vela MD [Primary Care Provider] - - Diet and Activity Activity: increase activity as tolerated Diet: diabetic diet - VTE Reasons for not Prescribing Prophylaxis: Not indicated-Anticoagulated or INR therapeutic Deep Vein Thrombosis/Pulmonary Embolism Present on Admission: No
[2018-10-20 14:09] VITALS: BP 149/85
[2018-10-20] MEDS ORDERED: Apixaban 5 MG TABLET PO SCH (21:00)
--- NOTE | 2018-10-21 03:37 | Electrocardiograph Report ---
[place] [id number] Test Date: 2018-10-20 Pat Name: Frances Alamo Department: [id number] Room: [facility] Gender: F Ship Carpenter: ALEX : 1965 Requested By: Ananth Randolph Order Number: [id number] Reading MD: Timo Hernandez Measurements Intervals [place] Rate: 65 P: 49 NC: 169 QRS: -5 QRSD: 132 T: 61 QT: 429 QTc: 441 Interpretive Statements SINUS RHYTHM INTRAVENTRICULAR CONDUCTION DELAY VOLTAGE CRITERIA FOR LVH Electronically Signed On 10-21-2018 3:36:03 EDT by Timo Hernandez
== END 2018-10-20 14:59 | disposition home or self-care (01) ==
LOC: EMEROOARM 04:54 → ICNU 04:54 → SUATTDRO 06:51 → ICNU 08:04 → 3NENU 10-19 05:41
PROVIDERS: ADMIT Internal Medicine; ATTEND Internal Medicine